=== PATIENT | female | born 1965 | race Caucasian/White ===

== ENCOUNTER 2022-02-21 22:33 | Emergency (ER) | payer SELFPAY ==
[2022-02-21 23:09] VITALS: BP 108/73; PULSE 120; RESP 20; TEMP 37.7; O2SAT 97; BMI 27.3
--- NOTE | 2022-02-21 23:32 | ED.FEVER ---
HPI - Fever General Date Seen: 02/21/22 Chief Complaint: Unspecified Complaint, Adult Stated Complaint: Chills, shortness of breathe/cough Time Seen by Provider: 02/21/22 22:39 Source: patient and family Mode of arrival: ambulatory Limitations: no limitations History of Present Illness HPI Narrative: Patient is a 56-year-old female presents here for evaluation of a fever, her daughter is influenza A positive, was treated with Tamiflu, she developed a fever tonight, she has not vomited but does feel slightly nauseous. She also some weakness and earlier tonight she said she could not breathe, that is why her daughter brought her in. Did not receive the flu shot, MD elicited complaint: fever, malaise and weakness Pertinent past history: other (Adrenal insufficiency) Context: sick contacts and other(s) with similar symptoms Exacerbating factors: exertion Relieving factors: ibuprofen Associated symptoms: chills, myalgias, nasal congestion, sore throat, cough and nausea Treatments prior to arrival fever: ibuprofen Related Data Home Medications Medication Instructions Recorded Confirmed Advil 02/21/22 hydrocortisone 20 mg PO DAILY 02/21/22 02/21/22 Previous Rx's Medication Instructions Recorded oseltamivir 75 mg capsule (Tamiflu) 75 mg PO BID 5 days #10 caps 02/22/22 Allergies Allergy/AdvReac Type Severity Reaction Status Date / Time No Known Drug Allergies Allergy Verified 02/21/22 23:15 Review of Systems Status of ROS Reports: 10 or more systems reviewed and unremarkable except as noted in History and below Exam Narrative Exam Narrative: I find her comfortable in room 4, she is in no apparent distress she speaks fluid Chinese, but her daughter interprets. Oriented x3, answers my questions appropriately, within the rounds my Chinese knowledge. Pupils equal round reactive to light her TMs are normal oropharynx normal neck is supple full range of motion with absence of meningismus, hydration status is good, chest is clear heart sounds are normal, no signs of respiratory distress, abdomen is soft there is no guarding no past splenomegaly moves all extremities independently and well. Const Vital Signs, click to edit/add: Vital Signs - 24 hr 02/21/22 23:09 Temperature 99.8 F H Pulse Rate [Right Pulse Oximeter] 120 H Respiratory Rate 20 Blood Pressure [Left Upper Arm] 108/73 Pulse Oximetry 97 Oxygen Delivery Method Room Air Documenting provider has reviewed patient's vital signs: yes Course Course Hospital Course: Influenza is positive as suspected, she has influenza A. Recommend Tylenol, ibuprofen along with Tamiflu given her adrenal insufficiency, she will increase her hydrocortisone to 60 mg a day for the next 3 days, and then call her environmental health technician for further advice for this. We went over signs and symptoms of worsening condition, such as vomiting, increasing pain, other issues she is to come back if these occur. Vital Signs Vital signs: Initial Vital Signs Temperature 99.8 F H 02/21/22 23:09 Temperature Source Temporal Artery Scan 02/21/22 23:09 Pulse Rate 120 H 02/21/22 23:09 Respiratory Rate 20 02/21/22 23:09 Blood Pressure 108/73 02/21/22 23:09 Blood Pressure Mean 84 02/21/22 23:09 Blood Pressure Position Sitting 02/21/22 23:09 Pulse Oximetry 97 02/21/22 23:09 Oxygen Delivery Method 02/21/22 23:09 Vital Signs Temperature 99.8 F H 02/21/22 23:09 Pulse Rate 120 H 02/21/22 23:09 Respiratory Rate 20 02/21/22 23:09 Blood Pressure 108/73 02/21/22 23:09 Pulse Oximetry 97 02/21/22 23:09 Oxygen Delivery Method 02/21/22 23:09 Temperature 99.8 F H 02/21/22 23:09 Pulse Rate 120 H 02/21/22 23:09 Respiratory Rate 20 02/21/22 23:09 Blood Pressure 108/73 02/21/22 23:09 Pulse Oximetry 97 02/21/22 23:09 Oxygen Delivery Method 02/21/22 23:09 MDM - Fever Lab Data Labs: Lab Results 02/21/22 Range/Units 23:04 SARS-CoV-2 (PCR) Negative SARS-CoV-2 (Negative) Influenza Type A (PCR) POSITIVE PCR FLU A A (Negative) Influenza Type B (PCR) Negative PCR FLU B (Negative) RSV (PCR) Negative PCR RSV (Negative) Discharge Plan Discharge Clinical Impression: Influenza A Patient Disposition: Home w/ Parent or Adult Condition: Stable Instructions: Influenza (DC) Additional Instructions: Home, rest, medications as directed, Tylenol Advil alternating, I would increase here hydrocortisone to 60 mg a day. Please call your environmental health technician on Wednesday to confirm that is the dosage that he wants you to take. Recommend Tamiflu as directed. Activity Level: No Restrictions Prescriptions: New oseltamivir [Tamiflu] 75 mg capsule 75 mg PO BID 5 Days Qty: 10 0RF No Action hydrocortisone 20 mg PO DAILY Advil Follow Up/Referrals: Provider,Not a Local [Primary Care Provider] - Stand Alone Forms: [employer] Info Instructions
[2022-02-21] MEDS: ACETAMINOPHEN 500 MG TABLET 1000 MG PO (23:41)
[2022-02-21 23:53] LABS: PCR FLU A POSITIVE PCR FLU A (Negative); PCR FLU B Negative PCR FLU B (Negative); PCR RSV Negative PCR RSV (Negative)
[2022-02-21 23:57] LABS: SARS PCR* Negative SARS-CoV-2 (Negative)
--- OUTSIDE RECORDS SUMMARY | 2022-02-22 00:03 | XMS_ITS | Continuity of Care Document ---
:04/03/1966 Author Organization [facility] Address [address] [place] [address]- Care Team Providers Name Role Phone Laurita Kothari Primary Care Physician Encounter [facility] [id number] Date(s): 07/08/21 - 07/08/21 [facility] [address] [place], [place] [address] Encounter Diagnosis Lower extremity weakness (Discharge Diagnosis) - 07/08/21 Head ache (Discharge Diagnosis) - 07/08/21 Pain of left upper extremity (Discharge Diagnosis) - 07/08/21 Attending Physician: Balbir Irby MD Admitting Physician: Balbir Irby MD Referring Physician: No referring, Doctor Reason for Visit LT SIDE HEAD PAIN Allergies, Adverse Reactions, Alerts No Known Allergies Medications acetaminophen (acetaminophen 325 mg oral tablet) [facility] Status: Ordered [address] [place], [place] [id number] Start Date: 07/08/21 Stop Date: 07/11/21 2 Tabs By Mouth Every 6 hours as needed for pain for 3 Days. Refills: 0. Ordering provider: Balbir Irby MD amLODIPine (amLODIPine 10 mg oral tablet) [facility] Status: Ordered [address], [place] [id number] Start Date: 05/07/21 1 Tabs By Mouth Daily. Refills: 1. Ordering provider: Sen Keenan MD atorvastatin (atorvastatin 40 mg oral tablet) [facility] Status: Ordered [address] [place], [place] [id number] Start Date: 05/07/21 1 Tabs By Mouth Daily. Refills: 0. Ordering provider: Sen Keenan MD insulin detemir (insulin detemir 100 units/mL subcutan eous solution) [facility] Status: Ordered [address] [place], [place] [id number] Start Date: 05/07/21 0.1 Milliliter Subcutaneous Daily. Refills: 0. Ordering provider: Sen Keenan MD levothyroxine (Synthroid 175 mcg (0.175 mg) oral table t) [facility] Status: Ordered [address] [place], [place] [id number] Start Date: 05/07/21 1 Tabs By Mouth Daily. Refills: 0. Ordering provider: Sen Keenan MD metFORMIN (metFORMIN 500 mg oral tablet) [facility] [address] [facility] [place] [id number] Start Date: 05/07/21 2 Tabs By Mouth 2 Times a Day With Meals. Refills: 0. Ordering provider: Sen Keenan MD Problem List Condition Effective Dates Status Health Status Informant Diabetes(Confirmed) Active Hypertension(Confirmed) Active Procedures Procedure Date Related Diagnosis Body Site Status Collection of venous blood by 07/08/21 Completed venipuncture Results Laboratory List Name Date Auto Diff 07/08/21 CBC with Diff 07/08/21 Comprehensive Metabolic Panel (CMP) 07/08/21 Lactic Acid Lvl 07/08/21 Troponin (TNIH) 07/08/21 07/08/21 Test Result Reference Range Specimen Source Laborator y WBC 6.64 x10e3/mcL (Normal is Blood [facility] 4.30-11.00 x10e3/mcL) RBC 3.58 x10e6/mcL (Normal is Blood [facility] Laborator [facility] 4.20-5.40 x10e6/mcL) Hgb 10.10 gm/dL (Normal is Blood [facility] 12.00-14.00 gm/dL) Hct 32.00 % (Normal is Blood [facility] 36.00-42.00 %) MCV 89.4 Femtoliters (Normal is Blood [facility] Laborat ory 80.0-100.0 Femtoliters) MCH 28.20 pg (Normal is Blood [facility] 26.00-33.00 pg) MCHC 31.60 gm/dL (Normal is Blood [facility] 31.00-36.00 gm/dL) RDW-CV 13.80 % (Normal is Blood [facility] 11.70-15.00 %) Plt 268 x10e3/mcL (Normal is Blood [facility] 150-375 x10e3/mcL) MPV 11.20 Femtoliters (Normal is Blood [facility] Labora tory 0.00-11.00 Femtoliters) Neut % Auto 63.5 % (Normal is Blood [facility] 40.0-70.0 %) Lymph % Auto 24.8 % (Normal is Blood [facility] 25.0-40.0 %) [place] % Auto 8.1 % (Normal is Blood [facility] 0.0-14.0 %) Eos % Auto 2.7 % (Normal is Blood [facility] 0.0-6.0 %) Baso % Auto 0.9 % (Normal is Blood [facility] 0.0-2.0 %) Neut # Auto 4.2 x10e3/mcL (Normal is Blood [facility] 2.0-7.0 x10e3/mcL) Lymph # Auto 1.6 x10e3/mcL (Normal is Blood [facility] 1.3-4.4 x10e3/mcL) [place] # Auto 0.5 x10e3/mcL (Normal is Blood [facility] 0.0-1.4 x10e3/mcL) Eos # Auto 0.2 x10e3/mcL (Normal is Blood [facility] 0.0-0.5 x10e3/mcL) Baso # Auto 0.1 x10e3/mcL (Normal is Blood [facility] 0.0-0.2 x10e3/mcL) Glucose Level 219 mg/dL (Normal is Blood [facility] 74-106 mg/dL) Sodium 139.0 mmol/L (Normal is Blood [facility] 136.0-145.0 mmol/L) Potassium 4.00 mmol/L (Normal is Blood [facility] 3.50-5.10 mmol/L) Chloride 103 mmol/L (Normal is Blood [facility] 98-107 mmol/L) CO2 30.00 mmol/L (Normal is Blood [facility] 21.00-32.00 mmol/L) Anion Gap 6 mmol/L (Normal is 3-11 Blood [facility] Laborat ory mmol/L) BUN 22.0 mg/dL (Normal is Blood [facility] 7.0-18.0 mg/dL) Creatinine 0.86 mg/dL (Normal is Blood [facility] 0.55-1.02 mg/dL) BUN/Creat Ratio 26 Ratio (Normal is 6-22 Blood [facility] Labo ratory Ratio) Calcium 9.00 mg/dL (Normal is Blood [facility] 8.50-10.10 mg/dL) Albumin. Level 2.5 gm/dL (Normal is Blood [facility] Laborator y 3.4-5.0 gm/dL) TP 7.70 gm/dL (Normal is Blood [facility] 6.40-8.20 gm/dL) A/G Ratio 0.5 Ratio (Normal is Blood [facility] 1.0-2.5 Ratio) T Bili 0.16 mg/dL (Normal is Blood [facility] 0.20-1.00 mg/dL) Alk Phos 708.0 units/L (Normal is Blood [facility] 46.0-116.0 units/L) AST 82.0 Intl_units/L (Normal is Blood [facility] Labora tory 15.0-37.0 Intl_units/L) ALT 77.0 units/L (Normal is Blood [facility] 12.0-78.0 units/L) Estimated 47.72 mL/min1 Creatinine Clearance eGFR Non- 76.05 (Normal is >=60) Blood [facility]CR [facility] [place] eGFR 88.14 (Normal is >=60) Blood [facility] Labora tory [facility] eGFR Pediatric Not Reported (Normal is >=75 Blood [facility] Labor atory mL/min/1.73m22 mL/min/1.73m2) Lactic Acid Lvl 1.00 mmol/L (Normal is Blood [facility] Laborato ry 0.40-2.00 mmol/L) Globulin 5.2 gm/dL (Normal is Blood [facility] 1.9-3.7 gm/dL) Calc Osmo 279 (Normal is Blood [facility] 285-295) Troponin TNIH 10.3 ng/L (Normal is Blood [facility] 0.0-51.4 ng/L) 1Result Comment: Calculated using method: Cockroft-Gault 2Result Comment: Not reported for adult patients ( > 18 years old ). Laboratory Information [facility] CLIA Number: [id number] [facility] [address] [facility] CLIA Number: [id number] [facility] [address] [place], [place] [address] Vital Signs 07/08/21 Temperature (Route Not Specified) 36 DegC*LOW* (Norm al is 36.5-37.3 DegC) Peripheral Pulse Rate 81 bpm (Normal is 60-100 bpm) Respiratory Rate 18 br/min (Normal is 12-20 br /min) Blood Pressure 154/79 mmHg (Normal is 90-135/60 -80 mmHg) Height 147.32 cm Weight 65.77 kg Social History Social History Type Response Sex Female Hospital Discharge Instructions Patient Ptxmtodvi51/12/2022 20:53:42Self-Care for HeadachesSelf-Care for Headaches Most headaches aren't serious and can be relieved with self-care. But some headaches may be a sign of another health problem like eye trouble or high blood pressure. To find the best treatment, learn what kind of headaches you get. For tension headaches, self-care will usually help. To treat migraines, ask your??healthcare provider??for advice. It's also possible to get both tension and migraine headaches. Self-care involves relieving the pain and avoiding headache triggers if you can. Ways to reduce pain and tension Try these steps: ???Apply a cold compress or ice pack to the pain site. ???Drink fluids. If nausea makes it hard to drink, try sucking on ice. ???Rest. Protect yourself from bright light and loud noises. ???Calm your emotions by imagining a peaceful scene. ???Massage tight neck, shoulder, and head muscles. ???To relax muscles, soak in a hot bath or use a hot shower. Use medicines Aspirin or other ajis-[id number] (OTC) pain medicines such as ibuprofen and acetaminophen can relieve headache. Remember: Never give aspirin to anyone 18 years old or younger because of the risk of getting Kin syndrome. Use pain medicines only when needed. Certain prescription and OTC medicines can lead to rebound headaches if they are taken too often. Check with your healthcare provider or pharmacist about your medicines. Track your headaches Keeping a headache diary can help you and your??healthcare provider??identify what's causing your headaches: ???Note when each headache happens. ???Identify your activities and the foods you've eaten??6 to 8??hours before the headache began. ???Look for any trends or triggers. ???Bring the information to your next medical appointment. Signs of tension headache Any of the following can be signs: ???Dull pain or feeling of pressure in a tight band around your head ???Pain in your neck or shoulders ???Headache without a definite beginning or end ???Headache after an activity such as driving or working on a computer Signs of migraine Any of the following can be signs: ???Throbbing pain on one or both sides of your head ???Nausea or vomiting ???Extreme sensitivity to light, sound, and smells ???Bright spots, flashes, or other visual changes ???Pain or nausea so severe that you can't continue your daily activities When to call your??healthcare provider?? Call your healthcare provider if any of these occur: ???A headache that lingers after a recent injury or bump to the head ???A headache that lasts for more than??3 days ???Frequent headaches,??especially in the morning Get medical care right away if you have: ???A headache along with slurred speech, changes in your vision, or numbness or weakness in your arms or legs ???Headaches with seizures ???A fever with a stiff neck or pain when you bend your head toward your chest ???A headache that you would call the worst headache you have ever had or a severe, persistent headache that gets worse or doesn't get better with treatment ?? [phone] [employer]. All rights reserved. This information is not intended as a substitute for professional medical care. Always follow your healthcare professional's instructions. Care Team PersonnelName: Laurita Kothari MD Address: [address] [facility] [address] [place] [address] [facility]
--- OUTSIDE RECORDS SUMMARY | 2022-02-22 00:03 | XMS_ITS | Continuity of Care Document ---
:04/03/1966 Author Organization [facility] Address [address] [place] [address]- Care Team Providers Name Role Phone Titi Laurita Mcdaniels Primary Care Physician Encounter [facility] [id number] Date(s): 06/02/21 - 06/02/21 [facility] [address] [place] [address]- [facility] Encounter Diagnosis Degenerative joint disease (Discharge Diagnosis) - 06/02/21 Bilateral shoulder pain (Discharge Diagnosis) - 06/02/21 Attending Physician: Shaun Pradhan MD Admitting Physician: Shaun Pradhan MD Referring Physician: No referring, Doctor Reason for Visit LEFT SHOULDER PAIN Allergies, Adverse Reactions, Alerts No Known Allergies Medications acetaminophen-codeine (Tylenol with Codeine #4 oral ta blet) [facility] Status: Ordered [address] [place], [place] [id number] Start Date: 06/02/21 Stop Date: 06/05/21 1 Tabs By Mouth Every 6 hours for 3 Days. Refills: 0. Ordering provider: Shaun Pradhan MD amLODIPine (amLODIPine 10 mg oral tablet) [facility] Status: Ordered [address] [place], [place] [id number] Start Date: 05/07/21 1 Tabs By Mouth Daily. Refills: 1. Ordering provider: Sen Keenan MD atorvastatin (atorvastatin 40 mg oral tablet) [facility] Status: Ordered [address] [place], [place] [id number] Start Date: 05/07/21 1 Tabs By Mouth Daily. Refills: 0. Ordering provider: Sen Keenan MD insulin detemir (insulin detemir 100 units/mL subcutan eous solution) [facility] Status: Ordered [address] [place] [id number] Start Date: 05/07/21 0.1 Milliliter Subcutaneous Daily. Refills: 0. Ordering provider: Sen Keenan MD levothyroxine (Synthroid 175 mcg (0.175 mg) oral table t) [facility] Status: Ordered [address] [place] [id number] Start Date: 05/07/21 1 Tabs By Mouth Daily. Refills: 0. Ordering provider: Sen Keenan MD metFORMIN (metFORMIN 500 mg oral tablet) [facility] Status: Ordered [address] [place], [place] [id number] Start Date: 05/07/21 2 Tabs By Mouth 2 Times a Day With Meals. Refills: 0. Ordering provider: Sen Keenan MD Problem List Condition Effective Dates Status Health Status Informant Diabetes(Confirmed) Active Hypertension(Confirmed) Active Vital Signs 06/02/21 Temperature (Route Not Specified) 36.8 DegC (Norm al is 36.5-37.3 DegC) Peripheral Pulse Rate 100 bpm (Normal is 60-100 bpm) Respiratory Rate 17 br/min (Normal is 12-20 br /min) Blood Pressure 166/90 mmHg (Normal is 90-135/60 -80 mmHg) Height 158 cm Weight 55 kg Social History Social History Type Response Sex Female Hospital Discharge Instructions Patient Zxlclxdlz04/07/2022 14:22:25Shoulder Pain, Uncertain CauseShoulder Pain with Uncertain Cause?? Shoulder pain can have many causes. Pain often comes from the structures that surround the shoulder joint. These are the joint capsule, ligaments, tendons, muscles, and bursa. Pain can also come from cartilage in the joint. Cartilage can become worn out or injured. It???s important to know what???s causing your pain so the healthcare provider can use the correct treatment. But sometimes it???s difficult to find the exact cause of shoulder pain. You may need to see a specialist (orthopedist). You mayalso need special tests such as a CT scan or MRI. The provider may need to use special tools to lookinside the joint (arthroscopy). Shoulder pain can be treated with a sling or a device that keeps your shoulder from moving. You can take an anti-inflammatory medicine such as ibuprofen to ease pain. You may need to do special shoulder exercises. Follow up with a specialist if the pain is severe or doesn???t go away after a few weeks. Home care Follow these tips when caring for yourself at home: ???If a sling was given to you, leave it in place for the time advised by your healthcare provider. If you aren???t sure how long to wear it, ask for advice. If the sling becomes loose, adjust it so that your forearm is level with the ground. Your shoulder should feel well supported. ???Put an ice pack on the injured area for 20 minutes every 1 to 2 hours the first day. You can makeyour own ice pack by putting ice cubes in a plastic bag. Wrap the bag in a thin towel. Continue withice packs 3 to 4 times a day for the next 2 days. Then use the pack as needed to ease pain and swelling. ???You may use acetaminophen or ibuprofen to control pain, unless another pain medicine was prescribed.??If you have chronic liver or kidney disease, talk with your healthcare provider before using these medicines. Also talk with your provider if you???ve ever had a stomach ulcer or digestive bleeding. ???Shoulder pain may seem worse at night, when there is less to distract you from the pain. If you sleep on your side, try to keep weight off your painful shoulder. Propping pillows behind you may stopyou from rolling over onto that shoulder during sleep.?Shoulder and elbow joints can become stiff if left in a sling for too long. You should start range of motion exercises about 7 to 10 days after the injury. Talk with your provider to find out what type of exercises to do and how soon to start. ???You can take the sling off to shower or bathe. Follow-up care Follow up with your healthcare provider if you don???t start to get better in the next 5 days. When to seek medical advice Call your healthcare provider right away??if any of these occur: ???Pain or swelling gets worse??or continues for more than a few days ???Your hand or fingers become cold, blue, numb, or tingly ???Large amount of bruising on your shoulder or upper arm ???Trouble moving your hand or fingers ???Weakness in your hand or fingers ???Your shoulder becomes stiff ???It feels like your shoulder is popping out ???You are less able to do your daily activities ?? 6430-9287 [employer]. All rights reserved. This information is not intended as a substitute for professional medical care. Always follow your healthcare professional's instructions. 06/02/2021 14:22:25OsteoarthritisOsteoarthritis Osteoarthritis happens??when the cartilage in a joint becomes damaged and worn. This may be from age, wear and tear, overuse of the joint, obesity, or other problems. Osteoarthritis??can affect any joint. But it's most common in??hands, knees, spine, hips, and feet. Symptoms include joint stiffness, and pain. It's also called degenerative joint disease. Home care ???When a joint is more sore than usual, rest it for a day or two. ???Heat can help relieve stiffness. Take a hot bath or apply a heating pad for up to 30 minutes at atime. If symptoms are worse in the morning, using heat just after awakening can help relax the muscle and soothe the joints.?Ice helps relieve pain. It's often used after activity. Use a cold pack wrapped in a thin cloth on the joint for 10 to 15 minutes at a time.?Alternating hot and cold can also help relieve pain. Try this for 20 minutes at a time, several times per day. ???Exercise helps prevent the muscles and ligaments around the joint from becoming weak.??It also helps maintain function in the joint.??Be as active as you can. Talk to your healthcare provider about what activity program is best for you. ???Excess weight puts a lot of extra strain on weight-bearing joints of the lower back, hips, knees,feet and ankles. If you are overweight, talk to your healthcare provider about a safe and effective weight loss program. ???Use anti-inflammatory medicines as prescribed for pain. This includes acetaminophen or NSAIDs such as ibuprofen or naproxen. Don't take NSAIDs if your healthcare provider has told you that you can'ttake NSAIDS because of other health problems If needed, topical or injected medicines may be recommended. Talk with your healthcare provider if these options are not enough to manage your pain. Follow the directions on all fhim-khf-wzzysnd medicines. ???Talk with your healthcare provider about devices that might help improve your function and reducepain. ???Talk with you healthcare provider about physical therapy to help strengthen your joints and the surrounding muscles. Follow-up care Follow up with your healthcare provider, or as advised. When to seek medical advice Call your healthcare provider right away if any of these occur: ???Redness or swelling of a painful joint ???Discharge or pus from a painful joint ???Fever of??100.4??F (38??C)??or higher, or as directed by your healthcare provider ???Worsening joint pain ???Decreased ability to move the joint or bear weight on the joint ?? 1716-5642 [employer]. All rights reserved. This information is not intended as a substitute for professional medical care. Always follow your healthcare professional's instructions. 06/02/2021 14:22:25Arthritis: ExerciseArthritis: Exercise Exercise is important to your overall health. It is especially important in people with arthritis. Regular exercise can: Look for exercise classes for arthritis in your community. ???Keep your??heart and blood vessels healthy ???Help with weight management, or weight loss ???Improve your mood ???Help prevent and manage health problems such as: oDiabetes oHigh blood pressure oHigh cholesterol oDepression In people with arthritis, it offers all of those benefits and it can: ???Lessen pain and stiffness ???Strengthen muscles that support your joints ???Help you to be able to do the things you enjoy Exercise and arthritis Exercise is an important part of any arthritis treatment plan. A complete program consists of the??following 3??types of exercises: ???Aerobic exercises??for cardiovascular health and overall fitness.?Strengthening exercises??to build up muscles to help prevent injury and keep joints stable. ???Fxwqi-vb-rpkgbp exercises??to keep muscles and joints flexible. Getting started Talk with your healthcare provider about what is safe for you. Make sure you: ???Learn how to do exercises correctly??and safely.??Consider talking with a physical therapist or process trainer used to working with people with arthritis. ???Start slowly and build. If you haven't been exercising, start slowly. Don't exercise too hard or too long. ???Create a routine.??Set aside specific times for exercise every day. ???Warm up carefully.??Take 5 to 10 minutes at the beginning and end of exercising to warm up and cool down. Just do the same exercises at a slower pace for??5 to 10 minutes. ???Work at a comfortable, smooth pace. Move your joints gently to prevent injury. ???Pay attention to your body.??Don't exercise a painful or swollen joint; switch to another activity. Follow the 2-hour pain rule: You did too much if your joint or muscle pain lasts??2 hours or more after exercising, or is worse the next day. This doesn't mean you should stop exercising. Just do less. Aerobic exercise Aerobic exercise improves overall health and helps control weight.??Choose those that don't add extra stress to your joints. For example, walking, swimming, or bicycling. Most people should exercise for at least 30 minutes, most days of the week. You don't have to exercise all at once. Try exercising for 10 minutes, 3 times a day, for example. Strengthening exercises Strengthening your muscles helps to protect your joints and prevent injuries. Try to do strengthening exercises 2 to 3 times a week: ???These exercises can be done with exercise or resistance bands (inexpensive exercise aids that addresistance), or with light weights. Some people use soup cans as weights. ???Isometric??exercises are done by tightening the muscles without moving the joint. This may be a good way to strengthen the muscles around a stiff joint. A physical therapist or process trainer can teach you how to do these exercises. Kbfqb-jk-qkirhb (ROM) exercises Lhjib-hp-dlnttn (ROM) exercises allow you to move each of your joints in every way they are intendedto move. You should do ROM exercises for each joint 2 to 3 times a day. This will help you maintain full use of all of your joints. Sample ROM exercises The following are just a sample of ROM exercises???one for your neck, shoulders, elbows, hips, knees, and ankles. To completely move each joint through its full range of motion, you will have to do a few exercises for each joint. A physical therapist or process trainer can teach you how to do full ROM exercises for each joint.?? Repeat each for these exercises 5 to 10 times. Make sure you move slowly: 1. Neck turns. Sit in a straight-backed chair. Look straight ahead. Slowly turn your head to the right, then return it to center. Repeat. Do the same thing, turning your head to the left. Repeat. 2. Shoulder raise.??Lie on your back or sit in a chair. Raise one arm over your head, keeping your elbow straight. Keep the arm close to your ear. Return it slowly to your side. Repeat with your other arm. 3. Elbow stretch.??Sit in a chair. If you are able, put both arms out to your sides to form a T. Slowly touch your shoulders with the tips of your fingers. Then return to the T-position. Repeat. 4. Hip stretch.??Lie on your back with your legs straight and about 6 inches apart. With your foot flexed, slide your leg out to the side, then slide it back to the starting position. Repeat with your other leg. 5. Knee bend. Sit in a chair with your legs bent at the knees in front of you. Straighten one leg asmuch as you can, then bring it back to the floor. Repeat this 5 to 10 times. Then do the same thing with the other leg.?? 6. Ankle stretch. Sit with your feet flat on the floor. Lift your toes off of the floor while your heels stay down. Repeat. Then lift your heels off the floor while your toes stay down. Repeat. Other exercise Many other exercise and activities benefit people with arthritis. It is most important to find exercise and activities that you enjoy. You might try: ???Yoga, including chair yoga, helps to keep your joints strong and flexible ???Torres Chi, an ancient type of exercise with slow, gentle movements ???Water exercise, including water walking For more information on exercise for arthritis go to the [employer] website: www.arthritis.org. ?? [employer]. All rights reserved. This information is not intended as a substitute for professional medical care. Always follow your healthcare professional's instructions. Care Team PersonnelName: Laurita Kothari MD Address: [address] [place] [address] [facility]
--- OUTSIDE RECORDS SUMMARY | 2022-02-22 00:03 | XMS_ITS | Continuity of Care Document ---
:04/03/1966 Author Organization [facility] Address [address] [place] [address]- Care Team Providers Name Role Phone Titi Laurita Mcdaniels Primary Care Physician Encounter [facility] [id number] Date(s): 11/25/21 - 11/29/21 [facility] [address] [phone] [place] [address] [facility] Discharge Disposition: Discharge Placement Attending Physician: Poli Kaminski MD Admitting Physician: Poli Kaminski MD Referring Physician: Poli Kaminski MD Reason for Visit CERVICAL MYELOPATHY Allergies, Adverse Reactions, Alerts No Known Allergies Assessment and Plan Extracted from: Title: Progress/SOAP Note Author: Lina Dixon MD Date: Diagnoses Hyponatremia ??(E87.1) 1. ??Diabetes mellitus with hyperglycemi a ??(E11.65) 2. ??Essential hypertension ??(I10) 3. ??Cervical myelopathy ??(G95.9) ?? Diabetes mellitus with hyperglycemia (E1 1.65):??On metformin, dapagliflozin Sliding scale insulin. Monitor glucose A C at bedtime ?? Essential hypertension (I10):??On lisino pril. Monitor glucose ?? Cervical myelopathy (G95.9):??s.p C5,6,7 cervical decompression on 11/25/2021. Patient has impaired gait and mobility. Primarily wheelchair bound. Ongoing PT OT. check B12 level ?? VTE:??SCDs at this time.??Patient is not cleared by surgery to receive pharmacological prophylaxis at this time. ?VTE Prophylaxis Assessment:?? VTE Prophylaxis Ordered ?? Discharge Planning:??rehab ? Medications alendronate (alendronate 70 mg oral tablet) Status: Ordered Start Date: 11/21/21 1 Tabs By Mouth. atorvastatin (atorvastatin 40 mg oral tablet) Status: Ordered Start Date: 11/21/21 1 Tabs By Mouth Daily. dapagliflozin (Farxiga 10 mg oral tablet) Status: Ordered Start Date: 11/21/21 1 Tabs By Mouth Daily. ergocalciferol (Vitamin D2 50,000 intl units (1.25 mg) oral capsule) Status: Ordered Start Date: 11/21/21 1 Capsules By Mouth Daily. levothyroxine (Synthroid 200 mcg (0.2 mg) oral tablet) Status: Ordered Start Date: 11/21/21 1 Tabs By Mouth Daily. lisinopril (lisinopril 10 mg oral tablet) Status: Ordered Start Date: 11/21/21 1 Tabs By Mouth Daily. metFORMIN (metFORMIN 500 mg oral tablet) Status: Ordered Start Date: 11/21/21 1 Tabs By Mouth 2 Times a Day. insulin aspart (insulin aspart [employer] [facility] Intermediate) Status: Completed Start Date: 11/29/21 Stop Date: 11/29/21 3-13 units Subcutaneous. Refills: 0. insulin aspart (insulin aspart [employer] jarod Intermediate) Status: Completed Start Date: 11/28/21 Stop Date: 11/28/21 3-13 units Subcutaneous. Refills: 0. insulin aspart (insulin aspart [employer] jarod Intermediate) Status: Completed Start Date: 11/28/21 Stop Date: 11/28/21 3-13 units Subcutaneous. Refills: 0. Problem List Condition Effective Dates Status Health Status Informant Diabetes(Confirmed) Active Hypertension(Confirmed) Active Hyperthyroidism(Confirmed) Active Procedures Procedure Date Related Diagnosis Body Site Status Collection of venous blood by 11/27/21 Completed venipuncture Collection of venous blood by 11/25/21 Completed venipuncture Fusion Spine Cervical Anterior 11/25/21 Completed (Laterality NA)1 Collection of venous blood by 11/21/21 Completed venipuncture Completed CHOLECYSTECTOMY Completed COCHOLEAR IMPLANTS Completed 1auto-populated from documented surgical case Results Laboratory List Name Date POC Glucose 11/29/21 POC Glucose 11/29/21 POC Glucose 11/29/21 Vitamin B12 Level 11/27/21 Hgb A1C 3 11/25/21 Auto Diff 11/21/21 Beta hCG QuaNT 11/21/21 CBC with Diff 11/21/21 Comprehensive Metabolic Panel 11/21/21 PT INR 11/21/21 PTT 11/21/21 UA Microscopic 11/21/21 UA with Microscopic if Ind 11/21/21 11/29/21 Test Result Reference Range Specimen Source Laborator y POC Glucose 251 mg/dL (Normal is 70-105 mg/dL) Blood [facility] POC Glucose 148 mg/dL (Normal is 70-105 mg/dL) Blood [facility] POC Glucose 108 mg/dL (Normal is 70-105 mg/dL) Blood [facility] MAR Glucose Result 251 11/28/21 Test Result Reference Range Specimen Source Laborator y MAR Glucose Result 123 MAR Glucose Result 296 11/27/21 Test Result Reference Range Specimen Source Laborator y Vitamin B12 Lvl 2345 pg/mL (Normal is 211-911 pg/mL) Blood [facility] 11/25/21 Test Result Reference Range Specimen Source Laborator y Hgb A1C 12.80 % (Normal is 3.80-5.70 %) [facility] Est Avg Glucose 321 mg/dL (Normal is 70-130 mg/dL) [facility] 11/21/21 Test Result Reference Range Specimen Source Laborator y WBC 6.50 x10e3/mcL (Normal is Blood [facility] 4.30-11.00 x10e3/mcL) RBC 4.01 x10e6/mcL (Normal is Blood [facility] 4.20-5.40 x10e6/mcL) Hgb 10.50 gm/dL (Normal is Blood [facility] 12.00-14.00 gm/dL) Hct 34.20 % (Normal is Blood [facility] 36.00-42.00 %) MCV 85.5 Femtoliters (Normal is Blood [facility] 80.0-100.0 Femtoliters) MCH 26.20 pg (Normal is [facility] 26.00-33.00 pg) MCHC 30.70 gm/dL (Normal is [facility] 31.00-36.00 gm/dL) RDW-CV 14.10 % (Normal is Blood [facility] 11.00-17.00 %) Plt 215 x10e3/mcL (Normal is [facility] 150-375 x10e3/mcL) MPV 10.60 Femtoliters (Normal is Blood [facility] 7.40-11.40 Femtoliters) NRBC % 0 % (Normal is 0-1 [facility] %) Neut % Auto 78.1 % (Normal is Blood [facility] 40.0-70.0 %) Lymph % Auto 12.2 % (Normal is Blood [facility] 25.0-40.0 %) [place] % Auto 7.3 % (Normal is Blood [facility] 0.0-14.0 %) Eos % Auto 1.4 % (Normal is Blood [facility] 0.0-6.0 %) Baso % Auto 1.0 % (Normal is Blood [facility] 0.0-5.0 %) Neut # Auto 5.0 x10e3/mcL (Normal is Blood [facility] 2.0-11.0 x10e3/mcL) Lymph # Auto 0.8 x10e3/mcL (Normal is Blood [facility] 0.0-5.0 x10e3/mcL) [place] # Auto 0.5 x10e3/mcL (Normal is [facility] 0.0-1.8 x10e3/mcL) Eos # Auto 0.1 x10e3/mcL (Normal is [facility] 0.0-0.7 x10e3/mcL) Baso # Auto 0.1 x10e3/mcL (Normal is [facility] 0.0-0.2 x10e3/mcL) PT 9.9 Seconds (Normal is Blood [facility] 10.1-12.8 Seconds) INR 0.89 (Normal is [facility] 0.91-1.20) PTT 26.20 Seconds (Normal is [facility] 21.90-31.00 Seconds) Glucose Level 579 mg/dL1 (Normal is [facility] 74-110 mg/dL) Sodium 133 mmol/L (Normal is [facility] 136-145 mmol/L) Potassium 4.2 mmol/L (Normal is [facility] 3.5-5.1 mmol/L) Chloride 98 mmol/L (Normal is [facility] 98-107 mmol/L) CO2 29.8 mmol/L (Normal is [facility] 20.0-31.0 mmol/L) Anion Gap 5 mmol/L (Normal is 3-11 [facility] mmol/L) BUN 17 mg/dL (Normal is 9-23 [facility] mg/dL) Creatinine 1.07 mg/dL (Normal is [facility] 0.60-1.30 mg/dL) BUN/Creat Ratio 15.89 Ratio (Normal is [facility] 6.00-22.00 Ratio) Calcium 8.5 mg/dL (Normal is [facility] 8.5-10.0 mg/dL) Albumin. Level 2.4 gm/dL (Normal is [facility] 3.4-5.0 gm/dL) TP 7.2 gm/dL (Normal is [facility] 6.4-8.2 gm/dL) A/G Ratio 0.5 Ratio (Normal is [facility] 1.0-2.5 Ratio) T Bili 0.57 mg/dL (Normal is [facility] 0.30-1.20 mg/dL) Alk Phos 702 Intl_units/L (Normal is [facility] 46-116 Intl_units/L) AST 238 Intl_units/L (Normal is 15-37 [facility] b Intl_units/L) ALT 152 units/L (Normal is 10-49 [facility] units/L) Estimated Creatinine 51.30 mL/min2 Clearance eGFR Cr 61 mL/min/1.73m23 Blood eGFR Pediatric Not Reported (Normal is >=75 Blood mL/min/1.73m24 mL/min/1.73m2) Globulin 4.8 gm/dL (Normal is [facility] 1.9-3.7 gm/dL) HCG QT 2.9 marcio intl Blood [facility] units/mL Ur Color Straw (Normal is U CleanCatch [facility] Yellow) Ur Clarity Clear (Normal is U [facility] Clear) Ur Spec Grav 1.024 (Normal is U [facility] 1.002-1.0350) Ur pH 6.0 (Normal is U [facility] 4.6-8.0) Ur Leuk Est 25 WBCs/uLTrace (Normal is U [facility] Negative.) Ur Nitrite Negative (Normal is U [facility] Negative) Ur Protein 100 mg/dL ++ mg/dL (Normal is U [facility] Negative mg/dL) UR Glucose >=500 mg/dL +++ (Normal is U [facility] mg/dL Negative mg/dL) Ur Ketones Negative mg/dL (Normal is U [facility] Negative mg/dL) Ur Urobilinogen NEG U [facility] Ur Bili Negative (Normal is U [facility] Negative) Ur Blood 0.03 mg/dLSmall (Normal is U [facility] Negative) Ur WBC 10-14 /HPF (Normal is 0-2 U [facility] /HPF) Ur RBC 1-2 /HPF (Normal is 0-2 U [facility] /HPF) Ur Bacteria None Seen /HPF (Normal is None U [facility] Seen /HPF) Ur Squam Epithelial Trace /HPF U [facility] Ur Mucous Trace /HPF U [facility] 1Result Comment: Calculated using method: Cockroft-Gault 2Result Comment: Result Called to and read back by SARAI GUALLPA RN on 11/21/2021 12:18:36 CDTby ARR. 3Result Comment: No previous creatinine in the last 72 hours; eGFR may not be reflective of the patient???s kidney function if creatinine is rapidly changing. 4Result Comment: Not reported for adult patients ( > 18 years old ). Laboratory Information [facility] CLIA Number: [id number] [address] Lab CLIA Number: [id number] [address] Lab CLIA Number: [id number] [address] Lab CLIA Number: [id number] [address] Lab CLIA Number: [id number] [address] Orders for Microbiology Reports Name Date Culture Anaerobic 11/25/21 Culture Bone 11/25/21 Microbiology Reports TEST:Anaerobic Culture COLLECTED DATE/TIME:11/25/21 9:40 AM FINAL REPORT:No Anaerobic Growth at 48 hours. TEST:Culture Bone COLLECTED DATE/TIME:11/25/21 9:40 AM FINAL REPORT:No growth at 72 hours. - See Culture Anaerobic for anaerobic work. Vital Signs 11/29/21 Temperature (Route Not Specified) 36.7 DegC (Norm al is 36.5-37.3 DegC) Peripheral Pulse Rate 95 bpm (Normal is 60-100 bpm) Respiratory Rate 16 br/min (Normal is 12-20 br /min) Blood Pressure 149/87 mmHg (Normal is 90-135/60 -80 mmHg) 11/21/21 Weight 56.699 kg 11/20/21 Height 162.56 cm Social History Social History Type Response Tobacco Denies Smoking Status Never smoker Sex Female Hospital Discharge Instructions Patient Ssqkyhhfg67/03/2022 16:05:35DIABETES, General Info (CUSTOM)Diabetes (General Information) Diabetes is a long-term health problem. It means your body does not make enough insulin. Or it may mean that your body cannot use the insulin it makes. Insulin is a hormone in your body. It lets blood sugar (glucose) reach the cells in your body. All of your cells need glucose for fuel. When you have diabetes, the glucose in your blood builds up because it cannot get into the cells. This buildup is called high blood sugar (hyperglycemia). Your blood sugar level depends on several things. It depends on what kind of food you eat and how much of it you eat. It also depends on how much exercise you get, and how much insulin you have in yourbody. Eating too much of the wrong kinds of food or not taking diabetes medicine on time can cause high blood sugar. Infections can cause high blood sugar even if you are taking medicines correctly. These things can also cause low blood sugar: ??? Missing meals ??? Not eating enough food ??? Taking too much diabetes medicine Diabetes can cause serious problems over time if you do not get treated. These problems include heart disease, stroke, kidney failure, and blindness. They also include nerve pain or loss of feeling in your legs and feet, and gangrene of the feet. By keeping your blood sugar under control you can prevent or delay these problems. Normal blood sugar levels are 80 to 100 before a meal and less than 180??in the 1 to 2 hours after ameal. Home care Follow these guidelines when caring for yourself at home: ??? Follow the diet your healthcare provider gives you. Take insulin or other diabetes medicine exactly as told to. ??? Watch your blood sugar as you are told to. Keep a log of your results. This will help your provider change your medicines to keep your blood sugar under control. ??? Try to reach your ideal weight. You may be able to cut back on or not have to take diabetes medicine if you eat the right foods and get exercise. ??? Do not smoke. Smoking worsens the effects of diabetes on your circulation. You are much more likely to have a heart attack if you have diabetes and you smoke. ??? Take good care of your feet. If you have lost feeling in your feet, you may not see an injury orinfection. Check your feet and between your toes at least once a week. ??? Wear a medical alert bracelet or necklace, or carry a card in your wallet that says you have diabetes. This will help healthcare providers give you the right care if you get very ill and cannot tell them that you have diabetes. Sick day plan If you get a cold, the flu, or a bacterial or viral infection, take these steps: ??? Look at your diabetes sick plan and call your healthcare provider as you were told to. You may need to call your provider right away if: ??? Your blood sugar is above 240 while taking your diabetes medicine ??? Your urine ketone levels are above normal or high ??? You have been vomiting more than 6 hours ??? You have trouble breathing or your breath zaragoza s a fruity smell ??? You have a high fever ??? You have a fever for several days and you are not getting better ??? You get light-headed and are sleepier than usual ??? Keep taking your diabetes pills (oral medicine) even if you have been vomiting and are feeling sick. Call your provider right away because you may need insulin to lower your blood sugar until you recover from your illness. ??? Keep taking your insulin even if you have been vomiting and are feeling sick. Call your providerright away to ask if you need to change your insulin dose. This will depend on your blood sugar results. ??? Check your blood sugar every 2 to 4 hours, or at least 4 times a day. ??? Check your ketones often. If you are vomiting and having diarrhea, watch them more often. ??? Do not skip meals. Try to eat small meals on a regular schedule. Do this even if you do not feellike eating. ??? Drink water or other liquids that do not have caffeine or calories. This will keep you from getting dehydrated. If you are nauseated or vomiting, takes small sips every 5 minutes. To prevent dehydration try to drink a cup (8 ounces) of fluids every hour while you are awake. General care Always bring a source of fast-acting sugar with you in case you have symptoms of low blood sugar (below 70). At the first sign of low blood sugar, eat or drink 15 to 20 grams of fast-acting sugar to raise your blood sugar. Examples are: ??? 3 to 4 glucose tablets. You can buy these at most [id number]. ??? 4 ounces (1/2 cup) of regular (not diet) soft??drinks ??? 4 ounces (1/2 cup) of any fruit juice ??? 8 ounces (1 cup) of milk ??? 5 to 6 pieces of hard candy ??? 1 tablespoon of honey Check your blood sugar 15 minutes after treating yourself. If it is still below 70, take 15 to 20 more grams of fast-acting sugar. Test again in 15 minutes. If it returns to normal (70 or above), eat asnack or meal to keep your blood sugar in a safe range. If it stays low, call your doctor or go to an emergency room. Follow-up care Follow-up with your healthcare provider, or as advised. For more information about diabetes, visit the [employer] website at www.diabetes.org or call 564-977-6241. When to seek medical advice Call your healthcare provider right away if you have any of these symptoms of high blood sugar: ??? Frequent urination ??? Dizziness ??? Drowsiness ??? Thirst ??? Headache ??? Nausea or vomiting ??? Abdominal pain ??? Eyesight changes ??? Fast breathing ??? Confusion or loss of consciousness Also call your provider right away if you have any of these signs of low blood sugar: ??? Fatigue ??? Headache ??? Shakes ??? Excess sweating ??? Hunger ??? Feeling anxious or restless ??? Eyesight changes ??? Drowsiness ??? Weakness ??? Confusion or loss of consciousness Call 911 Call for emergency help right away if any of these occur: ??? Chest pain or shortness of breath ??? Dizziness or fainting ??? Weakness of an arm or leg or one side of the face ??? Trouble speaking or seeing ?? [phone] [employer] [place] [address], [place] [address]. All rights reserved. This information is not intended as a substitute for professional medical care. Always follow your healthcare professional's instructions. 11/29/2021 16:05:32HYPERTENSION, Established (CUSTOM)High Blood Pressure --Established High Blood Pressure (Hypertension) is a chronic disease. The cause is unknown in most cases. It can usually be controlled with lifestyle changes and/or medicines. Symptoms of high blood pressure may include headache, dizziness, visual changes, chest pain and shortness of breath. Sometimes it causes no symptoms at all. However, even if there are no symptoms, untreated high blood pressure increases therisk of heart attack, also known as acute myocardial infarction, or AMI, and stroke. It is a serioushealth risk and should not be ignored. A normal blood pressure is 120/80 or less. The first (top) number is the systolic pressure. The second (bottom) number is the diastolic pressure. Hypertension exists when either the top number is 140 or higher, OR the bottom number is 90 or higher on repeated measurements. Home Care: All patients with high blood pressure should do the following to lower their pressure. If you are onmedicines, then these methods may reduce or eliminate your need for medicines in the future. Begin a weight loss program if you are overweight. Reduce your salt intake. ?? Avoid high salt foods (olives, pickles, smoked meats, salted potato chips, etc.). ?? Do not add salt to your food at the table. ?? Use only small amounts of salt when cooking. Begin an exercise program. Discuss with your doctor what type of exercise program would be best for you. It doesn't have to be difficult. Even brisk walking for 20 minutes three times a week is a good form of exercise. Avoid medicines which contain heart stimulants. This includes many cold and sinus decongestant pillsand sprays as well as diet pills. Check the warnings about hypertension on the label. Stimulants such as amphetamine or cocaine could be lethal for someone with hypertension. Never take these. Limit your caffeine intake or switch to caffeine-free products. Stop smoking. If you are a long-time smoker, this can be hard. Enroll in a stop- smoking program to improve your chance of success. Learning how to handle stress better is an important part of any program to lower blood pressure. Learn about relaxation methods such as meditation, yoga or biofeedback. If medicines were prescribed, take them exactly as directed. Missing doses may cause your blood pressure get out of control. Consider buying an automatic blood pressure machine (available at most pharmacies). Use this to monitor your blood pressure at home and report the results to your doctor. Follow Up: Regular visits to your own physician for blood pressure checks and medicine adjustment is an important part of your care. Make a follow-up appointment as directed by our staff. Get Prompt Medical Attention if any of the following occur: ?? Chest pain or shortness of breath ?? Severe headache ?? Throbbing or rushing sound in the ears ?? Nosebleed ?? Sudden severe abdominal pain ?? Extreme drowsiness, confusion or fainting ?? Dizziness or vertigo (dizziness with spinning sensation) ?? Weakness of an arm or leg or one side of the face ?? Difficulty with speech or vision ?? [phone], [place] [address]. All rights reserved. This information is not intended as a substitute for professional medical care. Always follow your healthcare professional's instructions. 11/29/2021 16:05:29Spinal Cord InjurySpinal Cord Injury The spinal cord is a long bundle of nerve fibers and nerve cells that extend from the base of the skull to below the waist. It is protected by the bones of your spine. The spinal cord nerves carry messages between the brain and the rest of the body. For that reason, injuries to the spinal cord are very serious. They may cause loss of feeling below the injured area (numbness) or loss of the ability tomove (paralysis). Emergency treatment may help prevent permanent damage or may reduce the severity of the damage. Warning Don't move a person with a spinal injury unless??you must do so??to save his or her life. Call 911 and wait for help. What causes spinal cord injuries? Car accidents, falls, sports injuries, and gunshot wounds cause most spinal cord damage. Electrical shock can also damage the spinal cord. Spinal cord injuries can happen??to anyone, but men in their 30s and 40s are most often affected. When to go to the emergency room (ER) A spinal cord injury is an extreme medical emergency. For anyone with a possible injury to the back or neck, call 911 or emergency services right away. Don't try to move the person. Doing so can cause further injury. When the paramedics arrive The emergency technicians will place the injured person on a hard board and fit a hard neck brace onhis or her neck. They will ask basic questions, take a history, and do a physical exam. They might need to put an IV (intravenous catheter) in his or her arm or hand to give medicines or fluids. It is important to provide a current list of the medicines the injured person is taking. What to expect in the ER The??healthcare providers??and nurses caring for your loved one will act quickly. You can help by answering questions about the injury. Meanwhile, your loved one will be examined and his or her breathing, heart rate, and blood pressure will be checked. Oxygen may be given through a facemask. An endotra cheal tube may be placed in the throat to aid breathing. To help determine the extent of the injury,one or more tests may be done: ???Spinal X-rays can help reveal fracture or damage to the bones of the spine. ???CT scans are detailed cross sectional X-rays showing location and extent of the damage. ???MRI uses strong magnets and radio waves to provide clear computer images of the spine that revealherniated disks and other problems. ???Ultrasound or direct exam can find bladder distention. This is caused by urine retention because of an injured spinal cord. If the healthcare provider finds this condition, he or she will insert??a urinary catheter to empty the bladder. ?? [id number] [employer]. All rights reserved. This information is not intended as a substitute for professional medical care. Always follow your healthcare professional's instructions. 11/28/2021 20:26:48Therapeutic Exercises: Abduction/Adduction, Heel Slides, Gluteal Sets ([id number]) Exercises for the Legs The following exercises do more than build strength. You???ll also use them after surgery to help speed your recovery. Ask your physical therapist (PT) or surgeon if you should exercise one or both legs. You may also be given special instructions. And unless you???re told otherwise, try to do each exercise at least??5 to 10??times,??2??times a day. Abduction/adduction ??? Lie in bed with your feet slightly apart. Keeping your knee and foot pointing toward the ceiling, slowly slide your leg out to the side. ??? Slide your leg back to its original position without crossing the midline of your body. Heel slides ??? Lie down or sit with your legs stretched out in front of you. ??? Slide your heel toward your buttocks while keeping it on the bed. Placing a plastic bag or cookie sheet under the heel can help it slide more easily. ??? Move it as far as you comfortably can. Hold for 5 to 10 seconds, then slide your heel back. Gluteal sets ??? Squeeze your buttocks together tightly. ??? Your hips will rise slightly off the bed. Hold for 5 to 10 seconds, then release. ?? [phone] [employer] [place] [address]. All rights reserved. This information is not intended as a substitute for professional medical care. Always follow your healthcare professional's instructions. 11/28/2021 20:26:48Therapeutic Exercises 2: Ankle Pumps, Quad Sets, Leg Raises ([id number])Therapeutic Exercises: Ankle Pumps, Quad Sets, Leg Raises The following exercises build strength. You???ll also use them after surgery to help speed your recovery. Ask your physical therapist or surgeon if you should exercise one or both legs. You may also begiven special instructions. And unless you???re told otherwise, try to do each exercise at least??5 t o10??times,??2??times a day. Ankle pumps After surgery, ankle pumps will help prevent circulation problems, such as blood clots. Practice ankle pumps by pointing and flexing your feet. Quadriceps sets ??? Lie in bed with your legs straight. Tighten the muscle at the front of the thigh as you press the back of your knee down toward the bed. ??? Hold for 5 to 10 seconds. Then relax the leg. Straight leg raises ??? Lie in bed. Bend one leg. Keep your other leg straight on the bed. ??? Tighten your thigh muscle and lift your straight leg as high as you can, but not higher than??12??inches. Hold for 5 to 10 seconds. Slowly lower the leg. ?? [id number] [email or web address]. [address] [place] [address]. All rights reserved. This information is not intended as a substitute for professional medical care. Always follow your healthcare professional's instructions. 11/20/2021 20:45:53During Cervical Disk SurgeryDuring Cervical Disk Surgery During surgery, your surgeon may remove all or part of the disk (diskectomy). To reach the cervical spine, he or she may make an incision in the front (anterior) or the back (posterior) of your neck. With the anterior approach, the neck may be made more stable with a fusion (joining) of the vertebrae.With the posterior approach, bone may be removed to enable your surgeon to reach the disk. A metal plate may be used to keep the vertebrae stable. Adding stability: fusion After removing a disk from the front, your surgeon may fuse the vertebrae above and below it. This limits movement, helping to relieve pressure and pain. First, the surgeon enlarges the space between the vertebrae. The surgeon then ???plugs?? the space with a plastic or metal cage filled with bone chips or stem cells or??a cylinder- or wedge-shaped bone graft. Metal plates may be added. As you heal,the graft and vertebrae grow together (fuse). After fusion, your ability to bend your neck may be slightly restricted. Through the back: posterior approach Your surgeon will make an incision (about 2 to 4 inches long) in the middle or next to the middle ofthe back of your neck. Then he or she may remove bone to reach the problem area. The surgeon then removes the damaged portion of the disk. Area where lamina may be removed. Area where foramina may be enlarged. Removing bone To reach the disk from the back, your surgeon may enlarge the foramina or remove a portion of the lamina. To help relieve pressure on the nerves or spinal cord, bone spurs may also be removed. The location and amount of bone removed depend on the type of problem you have. A bone graft is inserted to plug the opening. The disk is removed from between the vertebrae. Through the front: anterior approach Your surgeon will make a horizontal or vertical incision (about 1 to 3 inches long) on either side of your neck. To reach the disk, soft tissue is moved aside. All or part of the disk that is irritating the nerve is then removed. Your surgeon may remove bone spurs. The vertebrae may then be prepared for a fusion. ?? 3925-0083 [employer]. All rights reserved. This information is not intended as a substitute for professional medical care. Always follow your healthcare professional's instructions. 11/20/2021 20:45:53Spinal FusionSpinal Fusion During spinal fusion, your surgeon locks together, or fuses, specific bones in your spine that are causing pain. This limits the movement of these bones, which may help relieve your pain. Even so, you may feel more flexible after a fusion because you can move with less pain. Types of spinal fusion surgery Which section of the spine is fused depends on where your pain is. Sections of the spine that may befused include: ???The neck (called cervical fusion) ???The midback (called??thoracic fusion)?The lower back (called lumbar fusion) Fusion can be done from the front (anterior), side (lateral),??or back (posterior) of the body. Yoursurgeon will suggest which method is best for you. Bone grafts used in the surgery may be from your bone, cadaver bone, or artificial materials. Your surgeon will discuss these options with you. Current research is inconclusive regarding the benefits of surgery over intensive rehabilitation programs. Your surgeon will discuss your specific case and options. Before your surgery You will most likely arrive at the hospital on the morning of the surgery. Be sure to follow all of your healthcare provider???s instructions on preparing for surgery. ???Follow any directions you are given for not eating or drinking before surgery. ???If you take a daily medicine, ask if you should still take it the morning of surgery. ???If you are taking any blood-thinning medicines, including aspirin, make sure to discuss them withyour??healthcare provider??at least a week in advance. ???At the hospital, your temperature, pulse, breathing, and blood pressure will be checked. An IV (Intravenous) line??will be started to provide fluids and??medicines needed during surgery. Anesthesia At the start of your surgery, you???ll be given general anesthesia. This??medicine will put you intoa deep state like sleep through the surgery. An anesthesiologist is in charge of the anesthesia. He or she??will meet with you before the surgery starts to talk to you and answer your questions. After surgery After the surgery, you???ll go to the postanesthesia care unit (PACU). You???ll stay there until youare fully awake, usually a few hours. Then you???ll go to your room. With cervical fusion, you may go home the next day. With lumbar fusion, you??may stay in the hospital for 2 to 7 days. During that period, nurses and physical therapists will help you get out of bed and walk. If you have drains coming out of your wounds(s), they are usually removed before you leave the hospital. When to call your healthcare provider Seek immediate medical attention??if you have any of these symptoms during your recovery: ???Increased pain, redness, or drainage from the incision ???New onset numbness, tingling, weakness, loss of bowel or bladder control?Fever over 100.4??F (38??C), or as advised ???Signs of a blood clot, which can include swelling, redness,??and pain in the calf ???Chest pain or shortness of breath ?? [id number] [email or web address]. All rights reserved. This information is not intended as a substitute for professional medical care. Always follow your healthcare professional's instructions. 11/20/2021 20:45:53Cervical Disk Surgery, Discharge InstructionsDischarge Instructions for Cervical Disk Surgery You had cervical disk surgery. This procedure??can relieve neck and arm pain, numbness, and weakness. There are several types of cervical disk surgery. You and your healthcare provider??decided on the type that was best for you. Here are tips to help speed your recovery. Activity ???Arrange your household to keep the items you need within reach. ???Remove electrical cords, throw rugs,??and anything else that may cause you to fall. ???Follow your healthcare provider's instructions for wearing a??cervical collar or brace. The neck collar or brace supports and correctly positions your neck after surgery. Follow instructions for itscare and use, including how long you must wear it. ???Don???t drive until your??healthcare provider??says it???s OK. This will most likely be when you can move your neck from side to side freely and without pain. Never drive while you are on opioid pain medicine. ???Walk as much as possible. You may also go up and down stairs. Walking outside or walking on a treadmill at a slow speed with no incline is OK. ???Don???t lift anything heavier than??5??pounds (2.27 kg). ???Ask your??healthcare provider??when you??can go back to work. Other home care ???Take pain medicine exactly as directed. Don't take nonsteroidal anti- inflammatory drugs (NSAIDs),such as aspirin, ibuprofen, and naproxen, for 6 months. These can block bone fusion.?Wait??5 to 7??days??after your surgery to start showering. Then shower as needed. You may be instructed to use a neck collar while you shower. If so, carefully remove it or cover it with plastic wrap when you shower. Keep your neck correctly positioned as you gently pat dry your skin, the incision,and the neck collar. Then put the neck collar back on. Don???t rub the incision. Don't put creams orlotions on??it. ???Don???t soak in bathtubs, hot tubs, or swimming pools until told by your healthcare provider. ???Your incision may have been closed using sutures, bonny, or strips of tape. If you have suturesor bonny, they may need to be removed??2 to 3??weeks after surgery. You can allow strips of tape to fall off on their own. ???If you smoke, get help to quit. Nicotine from cigarettes, chewing tobacco, or patches slows healing of bone and you may need more surgery. Join a stop-smoking program to improve your chances of success. Follow-up Make a follow-up visit, or as advised. When to call 911 or your healthcare provider Call 911 right away if you have any of these: ???Chest pain ???Shortness of breath ???Trouble controlling your bowels or bladder ???Painful calf that is warm to the touch and tender with pressure Call your??healthcare provider right away if you have any of these: ???Drainage, redness, or warmth at the incision ???Trouble swallowing, especially liquids ???Fever of??100.4??F??(38??C) or higher, or as directed by your healthcare provider ???Shaking chills ???Weakness, numbness, or tingling in your arms or legs ???Swelling of the foot, ankle, or calf that is not relieved by elevating your feet ???Increased pain ?? [id number] [employer]. All rights reserved. This information is not intended as a substitute for professional medical care. Always follow your healthcare professional's instructions. 11/20/2021 20:45:53Preventing Surgical Site InfectionsPreventing Surgical Site Infections Hand washing reduces the risk of infection. One risk of having surgery is an infection at the surgical site. The surgical site is any cut the surgeon makes in the skin to do the operation. Surgical site infections can range from minor skin infections to severe or even fatal ones involving tissue under the skin or organs. This sheet tells you more about surgical site infections, what hospitals are doing to prevent them, and how they are treatedif they do occur. It also tells you what you can do to prevent these infections. What causes surgical site infections? Germs are everywhere. They???re on your skin, in the air, and on things you touch. Many germs are good. Some are harmful. Surgical site infections occur when harmful germs enter your body through the incision in your skin. Some infections are caused by germs that are in the air or on objects. But mostare caused by germs found on and in your own body. Who is at risk for surgical site infections? Anyone can have a surgical site infection. Your risk is greater if you: ???Are an older adult ???Have a weak immune system or other health conditions or illnesses such as diabetes ???Take certain medicines such as steroids ???Are a smoker ???Have certain types of operations, such as abdominal surgery ???Have poor nutrition ???Are very overweight ???Have an operation that lasts longer than 2 hours What are the symptoms of a surgical site infection?The infection usually starts with increased skin redness, pain, and swelling around the incision.Later you may notice a cloudy or greenish-yellow discharge from the incision and it may develop a foul odor. The incision may separate or open up. You are also likely to have a fever and may feel very ill. ???Symptoms can appear any time from hours to weeks after surgery. Implants such as an artificial knee or hip can become infected at any time after the operation. How are surgical site infections treated?Surgical site infections are treated with antibiotics. The type of medicine you get will depend on the germ thought to be causing the infection. Most serious wound infections need local wound care, and in some cases, further surgery. ???An infected skin wound may be reopened and cleaned. Sometimes, deep wounds need to be packed withgauze that is changed often until the wound starts to heal from the inside out. Your healthcare provider will figure out the best care needed to treat your surgical site infection. ???If an infection occurs where an implant is placed, the implant may be removed. ???If you have an infection deeper in your body, you may need another operation to treat it. What hospitals do to prevent surgical site infections Many hospitals take these steps to help prevent surgical site infections: ???Handwashing.??Before the operation, your surgeon and all operating room staff scrub their hands and arms with an antiseptic soap. ???Clean??skin.??The site where your incision is made is carefully cleaned with an antiseptic solution. ???Sterile clothing and drapes.??Members of your surgical team wear medical uniforms (scrub suits), long-sleeved surgical gowns, masks, caps, shoe covers, and sterile gloves. Your body is fully coveredwith a large sterile sheet (sterile drape) except for the spot where the incision is made. ???Clean air.??Operating rooms have special air filters and positive pressure airflow to prevent unfiltered air from entering the room. ???Careful use of antibiotics.??Antibiotics are given no more than 60 minutes before the incision ismade and generally stopped??within 24 hours??after surgery, depending on the type of surgery. This helps kill germs but prevents problems that can occur when antibiotics are taken longer. ???Controlled blood sugar levels.??Your blood sugar level may rise because of the stress of the surgery. Your blood sugar level is??watched closely to make sure it stays within a normal range. High blood sugar delays wound healing and increases the chances for infection. ???Controlled body temperature. A lirrz-[id number] temperature during or after surgery prevents oxygen from reaching the wound and makes it harder for your body to fight infection. Hospitals may warm IV fluids, increase the temperature in the operating room, and provide warm-air blankets. ???Proper hair removal. Any hair that must be removed is clipped right before the incision, not shaved with a razor. This prevents tiny nicks and cuts through which germs can enter. ???Wound care.??After surgery, a closed wound is covered with a sterile dressing for a day or two. Open wounds are packed with sterile gauze and covered with a sterile dressing. What you can do to prevent surgical site infections ???Ask questions. Learn what your hospital is doing to prevent infection. ???If your doctor tells you to, shower or bathe with plain soap the night before and the day of youroperation. Follow the instructions you are given. You may be asked to use a special??cleanser that you don???t rinse off. ???If you smoke, stop for the longest duration possible before and after the operation. Ask your doctor about ways to quit. ???Take antibiotics only when your healthcare provider tells you to. Using antibiotics when they???re not needed can create germs that are harder to kill. Also, finish the entire prescription of your antibiotics, even if you feel better. ???Be sure healthcare workers clean their hands with plain soap and water or with an alcohol-based hand pillowcase cleaner before and after caring for you. Don???t be afraid to remind them. ???After surgery, eat healthy foods. Care for your incision as directed by your doctor or nurse. When to call your healthcare provider Call your healthcare provider if you have any of the following: ???Increased soreness, pain, or tenderness at the surgical site ???A red streak, increased redness, or puffiness near the incision ???Yellowish, cloudy,??or bad-smelling discharge from the incision ???Stitches that dissolve before the wound heals ???Fever of 100.4??F (38??C) or higher, or as directed by your healthcare provider ???A tired feeling that doesn???t go away ?? [id number] [employer]. All rights reserved. This information is not intended as a substitute for professional medical care. Always follow your healthcare professional's instructions. Implantable Device List Procedure Provider Procedure Date Device Type Site Fusion Spine Cervical Anterior Unknown 11/25/21 Unknown Neck Device Serial Lot or Manufacturing Expiration Distinct MRI Implan table Identifier Number Batch Date Date Identification Safety Status Number Code Unknown N/A N/A Unknown Unknown Unknown Unknown Active Unknown N/A N/A Unknown Unknown Unknown Unknown Active Unknown N/A N/A Unknown Unknown Unknown Unknown Active Care Team PersonnelName: Titi Mcdaniels MD, Laurita Saucedo Address: [address] [place], [place] [id number] [place] [address] [place]
--- OUTSIDE RECORDS SUMMARY | 2022-02-22 00:03 | XMS_ITS | Continuity of Care Document ---
:04/03/1966 Author Organization [facility] Address [address] [place] [address]- Care Team Providers Name Role Phone Laurita Kothari Primary Care Physician Encounter [facility] [id number] Date(s): 04/24/21 - 05/07/21 [facility] [address] [phone] [place] [address] [facility] Encounter Diagnosis ALLY (acute kidney injury) (Discharge Diagnosis) - 04/24/21 Left renal mass (Discharge Diagnosis) - 04/24/21 Leukocytosis (Discharge Diagnosis) - 04/24/21 Hyperkalemia (Discharge Diagnosis) - 04/24/21 Hyperglycemia due to type 2 diabetes mellitus (Discharge Diagnosis) - 04/24/21 Discharge Disposition: Routine to Home Attending Physician: Nikky MAGALLANES, [place] Admitting Physician: [place] Sher MD Referring Physician: No referring, Doctor Reason for Visit ALLY,SEPSIS,UTI;HYERGLYCEMIA,HY Allergies, Adverse Reactions, Alerts No Known Allergies Assessment and Plan Extracted from: Title: Progress/SOAP Note Author: Diego Quevedo MD, Sen bhat Date: 05/06/21 ??Diagnoses ALLY (acute kidney injury) ??(N17.9) Left renal mass ??(N28.89) Leukocytosis ??(D72.829) Hyperkalemia ??(E87.5) UTI (urinary tract infection) ??(N39.0) Back pain ??(M54.9) Bacteremia ??(R78.81) Hyponatremia ??(E87.1) Hyperglycemia due to type 2 diabetes mathieu litus ??(E11.65) SepsisNOS ??(A41.9) ?Assessment:??UTI Sepsis Hypokalemia resolved Back pain Uncontrolled type 2 diabetes mellitus? A1c 14 Hypothyroidism Dyslipidemia Systemic hypertension ? ADA diet Zosyn??4.5 g??IV 3 times daily Levothyroxine??175 mcg??daily Atorvastatin 40 mg daily Amlodipine??10 mg??p.o. daily Levemir 10 units subcu daily Metformin at 1000 mg??p.o. twice daily Rapid insulin sliding scale per protocol Zofran 4 mg IV twice daily as needed Tylenol 650 mg every 6 hours as needed Hydralazine 10 mg IV every 4 hours if sy stolic blood pressure is more than 160 as needed Ativan 0.5 mg IV twice daily as needed Colace 100 mg p.o. twice daily as needed d ?? DVT prophylaxis: Intermittent pneumatic compression.??Heparin 5000 units subcu twice daily GI prophylaxis: Pantoprazole 40 mg p.o. daily ?? Prognostic: Fair Condition: Critical Disposition: Remain on telemetry.?L ikely discharge tomorrow Further assessment depending on clinical course ? Discharge Planning:?Discharge Planning:?Discharge To, [facility] ed:??Home with family care ?Order Date/Time ??Order Action ??Order Name ??Order Detail ??05/06/2021 10:16 ??Order ??CMP ??Blood, Nurse collect, AM Draw collect, 05/07/21 4:00:00 INDOOR LANDSCAPE ARCHITECT, Daily, for 3 Times, Stop date 05/10/21 3:59:00 IN[employer]OR [employer]SCAPE ARCHITECT ??05/06/2021 10:16 ??Order ??CBC NoDiff ??Blood, Lab Collect, AM Draw collect, 0 05/07/21 4:00:00 INDOOR LANDSCAPE ARCHITECT, Daily, for 3 Times, Stop date 05/10/21 3:59:00 INDOOR LANDSCAPE ARCHITECT ??05/06/2021 10:15 ??Order ??metFORMIN 500 mg Tab ??1,000 mg, 2 Tabs, Oral, BID With Meals ??05/06/2021 10:14 ??Order ??insulin detemir Levemir 1 unit/0.01 mL ??10 units, 0.1 mL, SubCutaneous, Daily ? Future AppointmentsDiagnostic Tests PendingComprehensive Metabolic Panel 05/07/21 CBC no Diff 05/07/21D Dimer 04/25/21 Future Scheduled TestsRadiologyBD DXA Study 06/02/21 Medications amLODIPine (amLODIPine 10 mg oral tablet) [facility] Status: Ordered [address] [place], [place] [id number] Start Date: 05/07/21 1 Tabs By Mouth Daily. Refills: 1. Ordering provider: Sen Keenan MD atorvastatin (atorvastatin 40 mg oral tablet) [facility] Status: Ordered [address] [place], [place] [id number] Start Date: 05/07/21 1 Tabs By Mouth Daily. Refills: 0. Ordering provider: Sen Keenan MD cefdinir (Omnicef 300 mg oral capsule) [facility] Status: Ordered [address] [place], [place] [id number] Start Date: 05/07/21 Stop Date: 05/14/21 1 Capsules By Mouth Every 12 hours for 7 Days. Refills: 0. Ordering provider: Sen Keenan MD insulin detemir (insulin detemir 100 units/mL subcutan eous solution) [facility] Status: Ordered [address] [place], [place] [id number] Start Date: 05/07/21 0.1 Milliliter Subcutaneous Daily. Refills: 0. Ordering provider: Sen Keenan MD levothyroxine (Synthroid 175 mcg (0.175 mg) oral table t) [facility] Status: Ordered [address] [place], [place] [id number] Start Date: 05/07/21 1 Tabs By Mouth Daily. Refills: 0. Ordering provider: Sen Keenan MD metFORMIN (metFORMIN 500 mg oral tablet) [facility] Status: Ordered [address] [place], [place] [id number] Start Date: 05/07/21 2 Tabs By Mouth 2 Times a Day With Meals. Refills: 0. Ordering provider: Sen Keenan MD insulin regular (insulin regular Correctional scale Hi gh) Status: Completed Start Date: 05/07/21 Stop Date: 05/07/21 3-21 UNITS Subcutaneous. Refills: 0. insulin regular (insulin regular Correctional scale Hi gh) Status: Completed Start Date: 05/07/21 Stop Date: 05/07/21 3-21 UNITS Subcutaneous. Refills: 0. insulin regular (insulin regular Correctional scale Hi gh) Status: Completed Start Date: 05/07/21 Stop Date: 05/07/21 3-21 UNITS Subcutaneous. Refills: 0. Problem List Condition Effective Dates Status Health Status Informant Diabetes(Confirmed) Active Hypertension(Confirmed) Active Procedures Procedure Date Related Diagnosis Body Site Status Collection of venous blood by 05/07/21 Completed venipuncture Collection of venous blood by 05/06/21 Completed venipuncture Collection of venous blood by 05/03/21 Completed venipuncture Collection of venous blood by 05/02/21 Completed venipuncture Collection of venous blood by 04/30/21 Completed venipuncture Collection of venous blood by 04/29/21 Completed venipuncture Collection of venous blood by 04/28/21 Completed venipuncture Collection of venous blood by 04/26/21 Completed venipuncture Collection of venous blood by 04/25/21 Completed venipuncture Collection of venous blood by 04/24/21 Completed venipuncture Results Laboratory List Name Date POC Glucose 05/07/21 POC Glucose 05/07/21 POC Glucose 05/07/21 CBC no Diff 05/07/21 Comprehensive Metabolic Panel (CMP) 05/07/21 Auto Diff 05/06/21 Basic Metabolic Panel (BMP) 05/06/21 CBC with Diff 05/06/21 Magnesium Level 05/06/21 Troponin +3hr 05/03/21 Basic Metabolic Panel (BMP) 05/03/21 Magnesium Level 05/03/21 Phosphorus Level 05/03/21 Troponin (TNIH) (Troponin MED (STAT, +3hr, +6hr)) Auto Diff 05/02/21 CBC with Diff 05/02/21 Comprehensive Metabolic Panel (CMP) 05/02/21 Magnesium Level 05/02/21 Comprehensive Metabolic Panel (CMP) 04/30/21 D Dimer (D Dimer (FED)) 04/25/21 Hgb A1C 3 04/25/21 Troponin +3hr 04/24/21 UA Microscopic 04/24/21 UA Microscopic if Ind and Culture if Ind 04/24/21 Basic Metabolic Panel (BMP) 04/24/21 Lipid Panel with Direct LDL 2 04/24/21 Procalcitonin 04/24/21 Lactic Acid Lvl 04/24/21 C Reactive Protein (CRP) 04/24/21 T4 Free (Free T4) 04/24/21 B Type Natriuretic Peptide 04/24/21 Comprehensive Metabolic Panel 04/24/21 Lipase Level 04/24/21 Manual Differential 04/24/21 PT INR 04/24/21 PTT 04/24/21 TSH 04/24/21 05/07/21 Test Result Reference Range Specimen Source Laborator y WBC 5.90 x10e3/mcL (Normal is Blood [facility] 4.30-11.00 x10e3/mcL) RBC 3.21 x10e6/mcL (Normal is Blood [facility] 4.20-5.40 x10e6/mcL) Hgb 9.10 gm/dL (Normal is Blood [facility] 12.00-14.00 gm/dL) Hct 27.70 % (Normal is Blood [facility] 36.00-42.00 %) MCV 86.3 Femtoliters (Normal is Blood [facility] 80.0-100.0 Femtoliters) MCH 28.40 pg (Normal is Blood [facility] 26.00-33.00 pg) MCHC 32.90 gm/dL (Normal is Blood [facility] 31.00-36.00 gm/dL) RDW-CV 14.60 % (Normal is Blood [facility] 11.00-17.00 %) Plt 310 x10e3/mcL (Normal is Blood [facility] 150-375 x10e3/mcL) MPV 8.20 Femtoliters (Normal is Blood [facility] 7.40-11.40 Femtoliters) NRBC % 0 % (Normal is 0-1 %) Blood [facility] Glucose Level 196 mg/dL1 (Normal is 74-110 Blood [facility] mg/dL) POC Glucose 275 mg/dL (Normal is 70-105 Blood [facility] mg/dL) POC Glucose 308 mg/dL (Normal is 70-105 Blood [facility] mg/dL) POC Glucose 258 mg/dL (Normal is 70-105 Blood [facility] mg/dL) Sodium 139 mmol/L2 (Normal is Blood [facility] 136-145 mmol/L) Potassium 3.5 mmol/L3 (Normal is Blood [facility] 3.5-5.1 mmol/L) Chloride 105 mmol/L4 (Normal is 98-107 Blood [facility] mmol/L) CO2 30.0 mmol/L5 (Normal is Blood [facility] 20.0-31.0 mmol/L) Anion Gap 4 mmol/L (Normal is 3-11 Blood [facility] mmol/L) BUN 9 mg/dL6 (Normal is 9-23 Blood [facility] mg/dL) Creatinine 0.95 mg/dL7 (Normal is Blood [facility] 0.60-1.30 mg/dL) BUN/Creat Ratio 9.47 Ratio (Normal is Blood [facility] 6.00-22.00 Ratio) Calcium 8.3 mg/dL8 (Normal is Blood [facility] 8.5-10.0 mg/dL) Albumin. Level 1.7 gm/dL9 (Normal is Blood [facility] 3.4-5.0 gm/dL) TP 6.0 gm/dL10 (Normal is Blood [facility] 6.4-8.2 gm/dL) A/G Ratio 0.4 Ratio (Normal is Blood [facility] 1.0-2.5 Ratio) T Bili 0.40 mg/dL11 (Normal is Blood [facility] 0.30-1.20 mg/dL) Alk Phos 291 Intl_units/L12 (Normal is 46-116 Blood [facility] Intl_units/L) AST 22 Intl_units/L13 (Normal is 15-37 Blood [facility] L ab Intl_units/L) ALT 16 units/L14 (Normal is 10-49 Blood [facility] units/L) Estimated Creatinine 55.35 mL/min15 Clearance eGFR Non- 67.43 (Normal is >=60) Blood Faroese eGFR 78.15 (Normal is >=60) Blood [place] eGFR Pediatric Not Reported (Normal is >=75 Blood mL/min/1.97u911 mL/min/1.73m2) Globulin 4.3 gm/dL (Normal is Blood [facility] 1.9-3.7 gm/dL) MAR Glucose Result 275 MAR Glucose Result 308 MAR Glucose Result 53 05/06/21 Test Result Reference Range Specimen Source Laborator y WBC 6.70 x10e3/mcL (Normal is Blood [facility] 4.30-11.00 x10e3/mcL) RBC 3.33 x10e6/mcL (Normal is Blood [facility] 4.20-5.40 x10e6/mcL) Hgb 9.30 gm/dL (Normal is Blood [facility] 12.00-14.00 gm/dL) Hct 28.60 % (Normal is Blood [facility] 36.00-42.00 %) MCV 85.9 Femtoliters (Normal is Blood [facility] 80.0-100.0 Femtoliters) MCH 27.80 pg (Normal is Blood [facility] 26.00-33.00 pg) MCHC 32.30 gm/dL (Normal is Blood [facility] 31.00-36.00 gm/dL) RDW-CV 14.50 % (Normal is Blood [facility] 11.00-17.00 %) Plt 339 x10e3/mcL (Normal is Blood [facility] 150-375 x10e3/mcL) MPV 8.10 Femtoliters (Normal is Blood [facility] 7.40-11.40 Femtoliters) NRBC % 0 % (Normal is 0-1 %) Blood [facility] Neut % Auto 73.9 % (Normal is Blood [facility] 40.0-70.0 %) Lymph % Auto 16.2 % (Normal is Blood [facility] 25.0-40.0 %) [place] % Auto 7.7 % (Normal is Blood [facility] 0.0-14.0 %) Eos % Auto 0.9 % (Normal is Blood [facility] 0.0-6.0 %) Baso % Auto 1.3 % (Normal is Blood [facility] 0.0-5.0 %) Neut # Auto 5.0 x10e3/mcL (Normal is Blood [facility] 2.0-11.0 x10e3/mcL) Lymph # Auto 1.1 x10e3/mcL (Normal is Blood [facility] 0.0-5.0 x10e3/mcL) [place] # Auto 0.5 x10e3/mcL (Normal is Blood [facility] 0.0-1.8 x10e3/mcL) Eos # Auto 0.1 x10e3/mcL (Normal is Blood [facility] 0.0-0.7 x10e3/mcL) Baso # Auto 0.1 x10e3/mcL (Normal is Blood [facility] 0.0-0.2 x10e3/mcL) Glucose Level 213 mg/dL17 (Normal is 74-110 Blood [facility] mg/dL) Sodium 135 mmol/L18 (Normal is Blood [facility] 136-145 mmol/L) Potassium 4.0 mmol/L19 (Normal is Blood [facility] 3.5-5.1 mmol/L) Chloride 103 mmol/L20 (Normal is 98-107 Blood [facility] mmol/L) CO2 28.0 mmol/L21 (Normal is Blood [facility] 20.0-31.0 mmol/L) Anion Gap 4 mmol/L (Normal is 3-11 Blood [facility] mmol/L) BUN 11 mg/dL22 (Normal is 9-23 Blood [facility] mg/dL) Creatinine 0.93 mg/dL23 (Normal is Blood [facility] 0.60-1.30 mg/dL) BUN/Creat Ratio 11.83 Ratio (Normal is Blood [facility] 6.00-22.00 Ratio) Calcium 8.2 mg/dL24 (Normal is Blood [facility] 8.5-10.0 mg/dL) Mg Lvl 1.8 mg/dL25 (Normal is Blood [facility] 1.8-2.4 mg/dL) Estimated Creatinine 56.54 mL/min26 Clearance eGFR Non- 69.18 (Normal is >=60) Blood Faroese eGFR 80.18 (Normal is >=60) Blood [place] eGFR Pediatric Not Reported (Normal is >=75 Blood mL/min/1.43d171 mL/min/1.73m2) 05/03/21 Test Result Reference Range Specimen Source Laborator y Glucose Level 251 mg/dL (Normal is 74-110 Blood [facility] mg/dL) Sodium 134 mmol/L (Normal is 136-145 Blood [facility] mmol/L) Potassium 3.9 mmol/L (Normal is 3.5-5.1 Blood [facility] mmol/L) Chloride 102 mmol/L (Normal is 98-107 Blood [facility] mmol/L) CO2 27.0 mmol/L (Normal is Blood [facility] 20.0-31.0 mmol/L) Anion Gap 5 mmol/L (Normal is 3-11 Blood [facility] mmol/L) BUN 10 mg/dL (Normal is 9-23 Blood [facility] mg/dL) Creatinine 0.90 mg/dL (Normal is Blood [facility] 0.60-1.30 mg/dL) BUN/Creat Ratio 11.11 Ratio (Normal is Blood [facility] 6.00-22.00 Ratio) Calcium 8.1 mg/dL (Normal is Blood [facility] 8.5-10.0 mg/dL) Mg Lvl 1.7 mg/dL (Normal is 1.8-2.4 Blood [facility] mg/dL) Phosphorus 3.9 mg/dL (Normal is 2.5-5.1 Blood [facility] mg/dL) Estimated Creatinine 58.42 mL/min28 Clearance eGFR Non- 71.98 (Normal is >=60) Blood Faroese eGFR 83.43 (Normal is >=60) Blood eGFR Pediatric Not Reported (Normal is >=75 Blood mL/min/1.59z248 mL/min/1.73m2) Troponin TNIH <2.50 ng/L (Normal is Blood [facility] 0.00-34.11 ng/L) Troponin TNIH <2.50 ng/L (Normal is Blood [facility] 0.00-34.11 ng/L) 05/02/21 Test Result Reference Range Specimen Source Laborator y WBC 13.70 x10e3/mcL (Normal is 4.30-11.00 Blood [facility] Lab x10e3/mcL) RBC 3.49 x10e6/mcL (Normal is 4.20-5.40 Blood [facility] x10e6/mcL) Hgb 9.70 gm/dL (Normal is 12.00-14.00 Blood [facility] Lab gm/dL) Hct 30.20 % (Normal is 36.00-42.00 %) Blood [facility] Lab MCV 86.4 Femtoliters (Normal is 80.0-100.0 Blood [facility] Lab Femtoliters) MCH 27.80 pg (Normal is 26.00-33.00 Blood [facility] Lab pg) MCHC 32.10 gm/dL (Normal is 31.00-36.00 Blood [facility] Lab gm/dL) RDW-CV 14.10 % (Normal is 11.00-17.00 %) Blood [facility] Lab Plt 399 x10e3/mcL (Normal is 150-375 Blood [facility] Lab x10e3/mcL) MPV 8.10 Femtoliters (Normal is 7.40-11.40 Blood [facility] Lab Femtoliters) NRBC % 0 % (Normal is 0-1 %) Blood [facility] Lab Neut % Auto 85.2 % (Normal is 40.0-70.0 %) Blood [facility] Lymph % Auto 9.2 % (Normal is 25.0-40.0 %) Blood [facility] [place] % Auto 4.3 % (Normal is 0.0-14.0 %) Blood [facility] Eos % Auto 0.6 % (Normal is 0.0-6.0 %) Blood [facility] L ab Baso % Auto 0.7 % (Normal is 0.0-5.0 %) Blood [facility] L ab Neut # Auto 11.6 x10e3/mcL (Normal is 2.0-11.0 Blood [facility] L ab x10e3/mcL) Lymph # Auto 1.3 x10e3/mcL (Normal is 0.0-5.0 Blood [facility] x10e3/mcL) [place] # Auto 0.6 x10e3/mcL (Normal is 0.0-1.8 Blood [facility] x10e3/mcL) Eos # Auto 0.1 x10e3/mcL (Normal is 0.0-0.7 Blood [facility] x10e3/mcL) Baso # Auto 0.1 x10e3/mcL (Normal is 0.0-0.2 Blood [facility] x10e3/mcL) Albumin. Level 1.9 gm/dL (Normal is 3.4-5.0 gm/dL) Blood [facility] Lab TP 6.6 gm/dL (Normal is 6.4-8.2 gm/dL) Blood [facility] Lab A/G Ratio 0.4 Ratio (Normal is 1.0-2.5 Ratio) Blood [facility] Lab T Bili 0.60 mg/dL (Normal is 0.30-1.20 Blood [facility] La b mg/dL) Alk Phos 353 Intl_units/L (Normal is 46-116 Blood [facility] L ab Intl_units/L) AST 26 Intl_units/L (Normal is 15-37 Blood [facility] Intl_units/L) ALT 18 units/L (Normal is 10-49 units/L) Blood [facility] Lab Mg Lvl 1.9 mg/dL (Normal is 1.8-2.4 mg/dL) Blood [facility] Lab Globulin 4.7 gm/dL (Normal is 1.9-3.7 gm/dL) Blood [facility] Lab 04/30/21 Test Result Reference Range Specimen Source Laborator y Albumin. Level 1.7 gm/dL (Normal is 3.4-5.0 gm/dL) Blood [facility] Lab TP 6.1 gm/dL (Normal is 6.4-8.2 gm/dL) Blood [facility] Lab A/G Ratio 0.4 Ratio (Normal is 1.0-2.5 Ratio) Blood [facility] Lab T Bili 0.60 mg/dL (Normal is 0.30-1.20 Blood [facility] La b mg/dL) Alk Phos 348 Intl_units/L (Normal is 46-116 Blood [facility] L ab Intl_units/L) AST 24 Intl_units/L (Normal is 15-37 Blood [facility] Lab Intl_units/L) ALT 19 units/L (Normal is 10-49 units/L) Blood [facility] Lab Globulin 4.4 gm/dL (Normal is 1.9-3.7 gm/dL) Blood [facility] Lab 04/25/21 Test Result Reference Range Specimen Source Laborator y D Dimer 2.20 mg/L30 (Normal is 0.19-0.49 Blood [facility] La boratory mg/L) Hgb A1C >14.00 % (Normal is 3.80-5.70 %) Blood Est Avg Glucose >355 mg/dL (Normal is 70-130 mg/dL) Blood 04/24/21 Test Result Reference Range Specimen Source Laborator y Segs Man 92 % (Normal is 40-70 Blood [facility] Labora tory %) Lymphs Man 5 % (Normal is 25-40 Blood [facility] Labora tory %) [place] Man 3 % (Normal is 0-14 Blood [facility] Laborat ory %) Segs # Man 24 x10e3/mcL (Normal is 2-7 Blood [facility] Laborato ry x10e3/mcL) Lymphs # Man 1.3 x10e3/mcL (Normal is Blood [facility] 1.3-4.4 x10e3/mcL) [place] # Man 0.8 x10e3/mcL (Normal is Blood [facility] 0.0-1.4 x10e3/mcL) RBC Morph Normal (Normal is Blood [facility] Normal) Plt Morph Normal (Normal is Blood [facility] Normal) Plt Est Adequate (Normal is Blood [facility] Adequate) PT 10.60 Seconds (Normal is Blood [facility] 9.30-11.40 Seconds) INR 1.02 (Normal is Blood [facility] 0.90-1.10) PTT 25.20 Seconds (Normal is Blood [facility] 24.50-32.80 Seconds) Lipase Lvl 531 units/L (Normal is Blood [facility] 73-393 units/L) Lactic Acid Lvl 1.20 mmol/L (Normal is Blood [facility]ato ry 0.40-2.00 mmol/L) CRP 19.90 mg/dL (Normal is Blood [facility] 0.20-0.90 mg/dL) Calc Osmo 277 (Normal is Blood [facility] 285-295) Calc Osmo 275 (Normal is Blood [facility] 285-295) BNP 63.6 pg/mL (Normal is Blood [facility] 0.0-100.0 pg/mL) Troponin TNIH 5.0 ng/L (Normal is Blood [facility] 0.0-51.4 ng/L) Cholesterol 100.0 mg/dL (Normal is Blood [facility] 0.0-199.0 mg/dL) Trig 185 mg/dL (Normal is 0-150 Blood [facility] Labora tory mg/dL) HDL 16 mg/dL (Normal is 40-60 Blood [facility] Labor[facility] tory mg/dL) LDL Direct 44 (Normal is Blood [facility] 0-129) LDL/HDL Ratio 3 Blood [facility] Laboratory T4 Free 0.69 ng/dL (Normal is Blood [facility] Lab 0.89-1.76 ng/dL) TSH 0.583 mc Intl (Normal is Blood [facility] units/mL 0.358-3.740 mc Intl units/mL) Procalcitonin 45.16 ng/mL31 (Normal is Blood [facility] Lab 0.00-0.50 ng/mL) Ur Color Yellow (Normal is U CleanCatch [facility] Laboratory Yellow) Ur Clarity Clear (Normal is U [employer]Catch [facility] Laboratory Clear) Ur Spec Grav <=1.005 (Normal is U [employer]atch [facility] Laboratory 1.001-1.035) Ur pH 5.5 (Normal is U CleanCatch [facility] 4.6-8.0) Ur Leuk Est Negative (Normal is U CleanCatch [facility] Negative) Ur Nitrite Positive (Normal is U CleanCatch [facility] Negative) Ur Protein Trace mg/dL (Normal is U CleanCatch [facility] Negative mg/dL) UR Glucose >=1000 mg/dL (Normal is U CleanCatch [facility] Negative mg/dL) Ur Ketones Negative mg/dL (Normal is U CleanCatch [facility] Negative mg/dL) Ur Urobilinogen 0.2 EU/dL (Normal is <=1 U CleanCatch [facility] atory EU/dL) Ur Bili Negative (Normal is U CleanCatch [facility] Negative) Ur Blood Moderate (Normal is U CleanCatch [facility] Negative) Urine Culture In Process U CleanCatch [facility] Ur WBC 3-4 /HPF (Normal is 0-2 U CleanCatch [facility] /HPF) Ur RBC 5-9 /HPF (Normal is 0-2 U CleanCatch [facility] /HPF) Ur Bacteria 1+ (Normal is None U [facility]atch [facility] ory Seen) Ur Squam Epithelial 0-5 /HPF (Normal is None U [facility]atch [facility] Seen /HPF) Ur WBC Clumps Present (Normal is None U CleanCatch [facility] tory seen) Ur Mucous Few /HPF (Normal is None U CleanCatch [facility] ory Seen /HPF) 1Result Comment: Calculated using method: Cockroft-Gault 2Result Comment: result 3Result Comment: result 4Result Comment: result 5Result Comment: result 6Result Comment: result 7Result Comment: result 8Result Comment: result 9Result Comment: result 10Result Comment: result 11Result Comment: result 12Result Comment: result 13Result Comment: result 14Result Comment: result 15Result Comment: result 16Result Comment: Not reported for adult patients ( > 18 years old ). 17Result Comment: Calculated using method: Cockroft-Gault 18Result Comment: result 19Result Comment: result 20Result Comment: result 21Result Comment: result 22Result Comment: result 23Result Comment: result 24Result Comment: result 25Result Comment: result 26Result Comment: result 27Result Comment: Not reported for adult patients ( > 18 years old ). 28Result Comment: Calculated using method: Cockroft-Gault 29Result Comment: Not reported for adult patients ( > 18 years old ). 30Result Comment: Result Called to and read back by MONICA TEJEDA RN_ on 04/25/2021 20:52:45 INDOOR LANDSCAPE ARCHITECT by se_. 31Result Comment: Result Called to and read back by Trinity Pedraza RN on 04/25/2021 01:43:38 INDOOR [employer]ANDSCAPE ARCHITECT by OO. Laboratory Information [facility] Lab CLIA Number: [id number] [address] Lab CLIA Number: [id number] [address] Lab CLIA Number: [id number] [address] [facility] CLIA Number: [id number] [facility] [place] [address] [place] [address] [facility] CLIA Number: [id number] [facility] [place] [address] [place] [address] [facility] CLIA Number: [id number] [facility] [place] [address] [place] [address] Lab CLIA Number: [id number] [address] [facility] CLIA Number: [id number] [facility] [place] [facility] [address] [place] [address] [facility] CLIA Number: [id number] [facility] [place] [address] [place] [address]- [facility] Orders for Microbiology Reports Name Date Culture Blood (Blood Culture) 04/28/21 Culture Blood (Blood Culture) 04/28/21 Culture Urine 04/24/21 Culture Blood (Blood Culture) 04/24/21 Culture Blood (Blood Culture) 04/24/21 Microbiology Reports TEST:Blood Culture COLLECTED DATE/TIME:04/28/21 3:01 PM FINAL REPORT:No growth at 5 days. TEST:Blood Culture COLLECTED DATE/TIME:04/28/21 3:01 PM FINAL REPORT:No growth at 5 days. TEST:Urine Culture COLLECTED DATE/TIME:04/24/21 10:21 PM PRELIMINARY REPORT:>100,000 cfu/ml Klebsiella pneumoniae subsp pneumoniae Susceptibility pending due to policy checker backorder. TEST:Blood Culture COLLECTED DATE/TIME:04/24/21 9:26 PM FINAL REPORT:From Aerobic and Anaerobic Bottles- Escherichia coli TEST:Blood Culture COLLECTED DATE/TIME:04/24/21 9:26 PM FINAL REPORT:From Aerobic and Anaerobic Bottles- Escherichia coli For Susceptibility See Vital Signs 05/07/21 Temperature (Route Not Specified) 36.6 DegC (Norm al is 36.5-37.3 DegC) Peripheral Pulse Rate 87 bpm (Normal is 60-100 bpm) Respiratory Rate 18 br/min (Normal is 12-20 br /min) Blood Pressure 133/79 mmHg (Normal is 90-135/60 -80 mmHg) 04/24/21 Height 160.02 cm Weight 58.9 kg Social History Social History Type Response Sex Female Hospital Discharge Instructions Patient Idhgnmxuy19/02/2022 02:06:15Handwashing: Tips for Patients, Family, and FriendsHandwashing: Tips for Patients, Family, and Friends Germs are everywhere around us. Normally, we live with germs without getting sick. In certain cases,harmful germs cause us to get sick with an infection. Or we can spread harmful germs to others and cause them to get sick. Keeping your hands clean is the best way to prevent getting or spreading germsthat cause infection. Wash your hands with soap and water or use an alcohol-based hand furnace cleaner. When to clean your hands: For patients In the hospital or in your home, you can come in contact with many harmful germs. To help prevent infection, wash your hands often, especially: ???After using the bathroom ???Before and after eating ???After coughing or sneezing ???After using a tissue ???After touching or changing a dressing or bandage ???After touching any object or surface that may be contaminated ???After touching an animal during a pet therapy session (hospital) ???After touching an animal, cleaning up after a pet, or??preparing food for pets (home) If you don???t have access to soap and water, use an alcohol-based hand gel containing at least 60% alcohol. These products kill most germs and are easy to use. But if your hands are visibly dirty, usesoap and water (not alcohol-based hand gel). When to clean your hands: For family and friends When visiting or caring for a loved one, washing your hands or using an alcohol- based hand furnace cleaner can help stop germs from spreading. Wash your hands: ???Before entering and after leaving the patient???s room ???As soon as you remove gloves or other protective clothing ???After changing a dressing or bandage ???After any contact with blood or other body fluids ???After touching or changing the patient???s bed linen or towels ???After touching an animal during a pet therapy session (hospital) ???After touching an animal, cleaning up after a pet, or??preparing food for pets (home) Many hospitals have sinks or gel dispensers right outside patient rooms. If not, carry a bottle of alcohol-based hand gel with you. Use it every time you visit. If your hands are visibly dirty, use soap and water (not alcohol-based hand gel). Tips for good handwashing Here are some suggestions to follow: ???Use either cold or warm water and plenty of soap. Work up a good lather. ???Clean the whole hand, including under your nails, between your fingers, and up the wrists. ???Wash for at least 15 to 30 seconds. Don???t just wipe. Scrub well. Sing the [place].comday song to reach the 30- second goal ???Rinse. Let the water run down your fingers, not up your wrists. ???Dry your hands well. Use a paper towel to turn off the faucet and open the door. Time matters The longer you wash your hands, the more germs you???ll remove. Most people wash their hands for 6 to 7 seconds. But at least??15 seconds??are needed to remove germs. Singing [employer]flow Birthday or the [place] Song are examples of??how long??15 seconds would be.??To protect yourself and others from infection, washing for 30 seconds is best. How to use an alcohol-based hand furnace cleaner Alcohol-based hand marketing technologist may kill more germs than soap and water. Use them when your hands aren???t visibly dirty. For best results, follow these steps: ???Choose a gel or spray that contains at least 60% alcohol. Products with less alcohol may not killgerms. ???Spread about a tablespoon of furnace cleaner in the palm of one hand. ???Rub your hands together briskly, cleaning the backs of your hands, the palms, between your fingers, and up the wrists. ???Rub until the furnace cleaner is gone, and your hands are completely dry. Antibacterial soaps: ???Come in liquid or bar form and are used with water ???Are no better at removing germs than plain soap Alcohol-based hand marketing technologist: ???Come in gels or sprays that don???t need water ???Work as well or better than washing with soap and water ?? 5270-7482 [employer]. All rights reserved. This information is not intended as a substitute for professional medical care. Always follow your healthcare professional's instructions. 04/30/2021 02:06:15Fall Due To Dizziness, Weakness, Or Loss Of BalanceFall Because of??Dizziness, Weakness, or Loss of Balance The symptoms that led to your fall have been evaluated. Your healthcare provider feels it is safe for you to return home. Many things can cause you to become dizzy. Everyone means a little something different by the word dizzy. People may describe their symptoms using these words: ???It doesn???t feel right in??my head ???It feels like spinning in??my head ???It seems like the room is spinning ???My balance feels off ???I feel lightheaded, like I am going to pass out All these descriptions can have real causes.?? Your balance mechanism is in your inner ear. Anything disturbing it can make you feel dizzy, whetherit is from a cold, an injury, or many other things. Anything that causes your blood pressure to dropsuddenly can make you feel lightheaded, or like you are going to faint. This is because at that moment there might not be enough blood flowing to your brain. Causes include: ???Medicines ???Dehydration ???Standing up or bending over too quickly ???Becoming overheated ???Taking a hot shower or bath ???Straining hard while lifting something or using the toilet ???Strokes, heart attack, heart valve disease, very slow or very fast heart rate ???Low blood sugar ???Ear infection ???Hyperventilation ???Anemia ???Injury ???Infection ???Panic attack ??? You may be at risk of repeat falls. Take precautions described below to prevent another fall. Home care ???If you become lightheaded or dizzy, lie down immediately or sit and lean forward with your head down. It is better to do this than fall and seriously hurt or injure yourself. ???Rest today. When changing position,??take a moment to be sure any dizziness goes away before standing and walking. ???If you have been prescribed a walker, be sure to use it whenever you walk, even if it is a short distance. ???If you were injured during the fall, follow the advice from your healthcare provider regarding care of your injury. ???Be sure your healthcare provider knows all the medicines, herbs, and supplements you take. Some medicines can cause dizziness. ???Cut back on alcohol use. Follow-up care Unless given other advice, call your healthcare provider on the next office day to advise of your fall and to schedule an appointment. You may require further treatment for??the underlying condition that caused today???s fall. If X-ray or a CT scan were done, you will be notified of the results, especially if it affects treatment. Call 911 Call 911 if any of these occur: ???Trouble breathing ???Confused or trouble arousing ???Fainting or loss of consciousness ???Rapid or very slow heart rate ???Seizure ???Trouble with speech or vision, weakness of an arm or leg ???Trouble walking or talking, loss of balance ???Numbness or weakness in one side of your body, facial droop When to seek medical advice Call your healthcare provider right away if any of the following occur: ???Another fall ???Continued dizzy spells ???Severe headache ???Blood in vomit or stools (black or red color) ?? [id number] [employer]. All rights reserved. This information is not intended as a substitute for professional medical care. Always follow your healthcare professional's instructions. 04/30/2021 02:06:15Diabetes with High Blood SugarDiabetes with High Blood Sugar You have been treated for high blood sugar (hyperglycemia). This may be because of an infection or other illness. Or it may be from eating too many sweets or starches. Or it may be from not taking enough insulin or other diabetes medicine. Home care Check your blood sugar level at least 2 times a day. Write it down the results. Do this before breakfast and before dinner. If you take insulin, also write down your routine insulin dose. Note any other doses you needed based on your sliding scale or as advised by your healthcare provider. Do this forthe next 3 to 5 days. High blood sugar may cause symptoms that you can learn to spot. These include: ???Peeing often ???Thirst ???Headache ???Breath that smells fruity ???Nausea or vomiting ???Belly pain If you have symptoms of high blood sugar, use a blood or urine test to find out what your blood sugar level is. If it is above your usual range, use the sliding scale regular insulin dose from your healthcare provider. Call your provider for advice if you were not given a range for your insulin dose. If your blood sugar is over 240 mg/dL, check your urine for ketones. Follow-up care Follow up with your healthcare provider, or as advised. You may need to meet with your provider in the next week. You will likely look at your blood sugar records together. You may need to change your dose of insulin or other diabetes medicine. When to seek medical advice Call your healthcare provider right away if these occur: ???Symptoms of high blood sugar that don't get better with the treatment your provider advised. Thisis especially true if you also have ketones in your urine. ???Blood sugar over 300 mg/dl. If you can???t reach your healthcare provider, go to a hospital emergency room or urgent care center. Call 911 Call 911 if you have any of the following: ???Confusion ???Dizziness, lightheadedness, or loss of consciousness ???Shortness of breath ???Chest pain ???Weakness of an arm, leg, or one side of the face ???Sudden trouble with speech or vision ?? 8922-1910 [employer]. All rights reserved. This information is not intended as a substitute for professional medical care. Always follow your healthcare professional's instructions. 04/30/2021 02:06:15Hyperkalemia, Discharge InstructionsDischarge Instructions for Hyperkalemia You have been diagnosed with hyperkalemia. This means you have a high level of potassium in your blood. Potassium is important to the function of the nerve and muscle cells, including the cells of the heart. But a high level of potassium in the blood cause serious problems such as abnormal heart rhythms and even heart attack. Diet changes Eat less of these potassium-rich foods: ???Bananas (do not eat??bananas) ???Apricots, fresh or dried ???Oranges and orange juice ???Grapefruit juice ???Tomatoes, tomato sauce, and tomato juice ???Spinach ???Green, leafy vegetables, including salad greens, kale, broccoli, chard, and collards ???Melons of all kinds ???Peas ???Beans ???Potatoes ???Sweet potatoes ???Avocados and guacamole ???Vegetable juice (homemade or store-bought) and vegetable juice cocktail ???Fruit juices ???Nuts, including pistachios, almonds, peanuts, hazelnuts, [place], cashew, mixed ???Lite or reduced sodium salt Other home care ???Tell your healthcare provider about all prescription and yiti-ofp-ehsvldt medicines you are taking. Certain??medicines can increase potassium levels. ???Take all medicines exactly as directed. ???Have your potassium levels checked regularly. ???Keep all follow-up appointments. Your healthcare provider needs to monitor your condition closely. ???Learn to take your own pulse. If your pulse is less than 60??beats per minute or irregular, call your provider. Follow-up Follow up with your healthcare provider, or as advised. When to call your healthcare provider Call your healthcare provider right away??if you have any of the following: ???Slow, irregular heartbeat ???Fatigue ???Dizziness ???Lightheadedness ???Confusion ???Weakness Call 911 Call 911 if you have any of these: ???Chest pain ???Fainting ???Shortness of breath ?? [id number] [employer]. All rights reserved. This information is not intended as a substitute for professional medical care. Always follow your healthcare professional's instructions. 04/30/2021 02:06:15Urinary Tract Infections in WomenUrinary Tract Infections in Women Urinary tract infections (UTIs) are most often caused by??bacteria. These bacteria enter the urinarytract. The bacteria may come from inside the body. Or they may travel from the skin outside the??rectum or vagina into the urethra. Female anatomy makes it easy for bacteria from the bowel??to enter a woman???s urinary tract, which is the most common source of UTI. This means women develop UTIs more often than men. Pain in or around the urinary tract is a common UTI symptom. But the only way to know for sure if you have a UTI for the healthcare provider to test your urine. The two tests that may be done are the urinalysis and urine culture. Types of UTIs ???Cystitis. A bladder infection (cystitis) is the most common UTI in women. You may have urgent or frequent need to pee. You may also have??pain, burning when you pee, and bloody urine. ???Urethritis. This is an inflamed urethra, which is the tube that carries urine from the bladder tooutside the body. You may have lower stomach or back pain. You may also have urgent or frequent needto pee. ???Pyelonephritis. This is a kidney infection. If not treated, it can be serious and damage your kidneys. In severe cases, you may need to stay in the??hospital. You may have a fever and lower back pain. Medicines to treat a UTI Most UTIs are treated with antibiotics. These kill the bacteria. The length of time you need to takethem depends on the type of infection. It may be as short as 3 days. If you have repeated UTIs, you may need a low-dose antibiotic??for several months. Take antibiotics exactly as directed. Don???t stop taking them until all of the medicine is gone. If you stop taking the antibiotic too soon, the infection may not go away. You may also develop a resistance to the antibiotic. This can make it much harder to treat. Lifestyle changes to treat and prevent UTIs The lifestyle changes below will help get rid of your UTI. They may also help prevent future UTIs. ???Drink plenty of fluids. This includes water, juice, or other caffeine-free drinks. Fluids help flush bacteria out of your body. ???Empty your bladder. Always empty your bladder when you feel the urge to pee. And always pee before going to sleep. Urine that stays in your bladder can lead to infection. Try to pee before and aftersex as well. ???Practice good personal hygiene. Wipe yourself from front to back after using the toilet. This helps keep bacteria from getting into the urethra. ???Use condoms during sex. These help prevent UTIs caused by sexually transmitted bacteria. Also don't use spermicides during sex. These can increase the risk for UTIs. Choose other forms of control instead. For women who tend to get UTIs after sex, a low-dose of a preventive antibiotic may be used. Be sure to discuss this option with your healthcare provider. ???Follow up with your healthcare provider as directed. He or she may test to make sure the infection has cleared. If needed, more treatment may be started. ?? [id number] [employer]. All rights reserved. This information is not intended as a substitute for professional medical care. Always follow your healthcare professional's instructions. 04/30/2021 02:06:15SepsisSepsis?? To treat sepsis, antibiotics and fluids may by given through an intravenous (IV) line. Sepsis is a very serious condition. It happens when your body responds with widespread inflammation to a bad infection, or to bacteria in??your bloodstream (bacteremia). Sepsis can be deadly. Blood pressure may drop. The lungs and kidneys may start to fail. Sepsis is a medical emergency. Call 911 right away. Risk factors Those most at risk for sepsis are: ???Infants or older adults ???People who have an illness that weakens their immune system,??such as cancer, AIDS, or diabetes ???People being treated with chemotherapy medicines or radiation, which weakens the immune system ???People who have had a transplant ???People with long-term (chronic) lung, kidney, or heart disease ???People with a very severe infection such as pneumonia, meningitis, or a urinary tract infection When to call 911 Sepsis is a medical emergency. Call 911 right away if you have a fever with any of these symptoms: ???Chills and shaking ???Fast heartbeat and breathing ???Trouble breathing ???Severe nausea or uncontrolled vomiting ???Confusion, disorientation, drowsiness, or dizziness ???Decreased urination ???Severe pain, including in the back or joints?? What to expect in the emergency room ???Blood and urine tests are done to look for bacteria. They also check for organ failure. ???Blood, urine, or sputum cultures may be taken. The samples are sent to a lab. They are placed in a special container. Any bacteria should grow in 24 to 48 hours. ???X-rays or other imaging tests may be done. A person with sepsis will be admitted to the hospital and treated with antibiotics. Treatment may also include oxygen and IV (intravenous) fluids. Depending on the person's physical condition and health history, they may be admitted right to the intensive care unit (ICU). ?? [id number] [employer]. All rights reserved. This information is not intended as a substitute for professional medical care. Always follow your healthcare professional's instructions. 04/30/2021 02:06:15Acute Kidney Failure, Discharge InstructionsDischarge Instructions for Acute Kidney Injury You have been diagnosed with acute kidney injury. This means that your kidneys are not working properly. When both kidneys are healthy, they help filter out fluid and waste from the blood and body.??Acute kidney injury has many causes. These include urinary blockages, infection, lack of enough blood supply, and medicines that can injure??kidneys. In some cases, acute kidney injury is short- term (temporary). This type lasts several days to a few months. This is because the kidney can repair itself. But acute kidney injury can also result in chronic kidney disease or end stage renal failure. Here aresome instructions for you to follow as you recover. Home care ???Follow any instructions for eating and drinking given to you by your healthcare provider. oDrink less fluid, if instructed by your healthcare provider. oKeep a record of everything you eat and drink. ???Measure the amount of urine and stool you have each day. ???Weigh yourself every day, at the same time of day, and in the same kind of clothes. Keep a daily record of your daily weights. ???Take your temperature every day. Keep a record of the results. ???Learn to take your own blood pressure (BP). Your healthcare provider can teach you how to correctly measure your BP. Keep a record of your results. Bring the record to your follow-up appointments. Ask your healthcare provider when you should seek emergency medical attention. Your provider will tellyou what blood pressure reading is dangerous. ???Stay away from people who have infections. This includes people with colds, bronchitis, or skin conditions. ???Practice good personal??hygiene. Wash your hands often. This is especially important if you have a catheter in place when you leave the hospital. Doing so helps keep you safe from infection. ???Take your medicines exactly as directed. ???You may need frequent blood and urine tests. These are done to monitor your kidney function. Follow-up care Follow up with your healthcare provider, or as advised. When to call your healthcare provider Call your??healthcare provider??right away if you have any of these: ???Signs of bladder infection, such as urinating more often, burning or pain when you pee, pain above your pubic bone, blood in your urine, or trouble starting your urine stream ???Signs of infection around your catheter, such as redness, swelling, warmth, or fluid leaking ???Rapid weight loss or weight gain, such as 3??pounds or more in 24 hours or 6 pounds or more in 7 days ???Fever above 100.4?? F ( 38??C ) or as directed by your healthcare provider ???Chills ???Muscle aches ???Night sweats ???Very little or no urine output ???Swelling of your hands, legs, or feet ???Back pain ???Abdominal pain ???Extreme tiredness ?? [id number] [employer]. All rights reserved. This information is not intended as a substitute for professional medical care. Always follow your healthcare professional's instructions.
--- OUTSIDE RECORDS SUMMARY | 2022-02-22 00:03 | XMS_ITS | Continuity of Care Document ---
:04/03/1966 Author Organization [facility] Address [address] [place] [address]- Care Team Providers Name Role Phone Laurita Kothari Primary Care Physician Encounter [facility] [id number] Date(s): 07/15/21 - 07/16/21 [facility] [address] [place], [place] [address] Encounter Diagnosis Anemia (Discharge Diagnosis) - 07/15/21 Pain of right sacroiliac joint (Discharge Diagnosis) - 07/15/21 Fall (Discharge Diagnosis) - 07/15/21 Cervical stenosis of spine (Discharge Diagnosis) - 07/15/21 Strain of upper arm, left (Discharge Diagnosis) - 07/15/21 Discharge Disposition: ED Home, Routine Attending Physician: Shaun Pradhan MD Admitting Physician: Shaun Pradhan MD Referring Physician: No referring, Doctor Reason for Visit FALL HEAD LAC Allergies, Adverse Reactions, Alerts No Known Allergies Medications acetaminophen (Tylenol 325 mg oral tablet) Status: Ordered Start Date: 07/15/21 Stop Date: 07/18/21 2 Tabs By Mouth Now and Every 6 hours as needed for pain for 3 Days. Refills: 0. Ordering provider: Shaun Pradhan MD amLODIPine (amLODIPine 10 mg oral tablet) [facility] Status: Ordered [address], [place] [id number] Start Date: 05/07/21 1 Tabs By Mouth Daily. Refills: 1. Ordering provider: Sen Keenan MD atorvastatin (atorvastatin 40 mg oral tablet) [facility] Status: Ordered [address], [place] [id number] Start Date: 05/07/21 1 Tabs By Mouth Daily. Refills: 0. Ordering provider: Sen Keenan MD insulin detemir (insulin detemir 100 units/mL subcutan eous solution) [facility]: Ordered [address], [place] [id number] Start Date: 05/07/21 0.1 Milliliter Subcutaneous Daily. Refills: 0. Ordering provider: Sen Keenan MD levothyroxine (Synthroid 175 mcg (0.175 mg) oral table t) [facility] Status: Ordered [address], [place] [id number] Start Date: 05/07/21 1 Tabs By Mouth Daily. Refills: 0. Ordering provider: Sen Keenan MD metFORMIN (metFORMIN 500 mg oral tablet) [facility] Status: Ordered [address], [place] [id number] Start Date: 05/07/21 2 Tabs By Mouth 2 Times a Day With Meals. Refills: 0. Ordering provider: Sen Keenan MD sulfamethoxazole-trimethoprim (Bactrim DS 800 mg-160 m g oral tablet) Status: Ordered Start Date: 07/15/21 Stop Date: 07/22/21 1 Tabs By Mouth 2 Times a Day for 7 Days. Refills: 0. Ordering provider: Shaun Pradhan MD Problem List Condition Effective Dates Status Health Status Informant Diabetes(Confirmed) Active Hypertension(Confirmed) Active Procedures Procedure Date Related Diagnosis Body Site Status Collection of venous blood by 07/15/21 Completed venipuncture Results Laboratory List Name Date POC Glucose 07/15/21 UA Microscopic if Ind and Culture if Ind (Urinalysis M icroscopic if Ind and 07/15/21 Culture if Ind) UA Microscopic 07/15/21 Basic Metabolic Panel (BMP) 07/15/21 CBC with Diff 07/15/21 PT INR 07/15/21 PTT 07/15/21 Troponin (TNIH) 07/15/21 Auto Diff 07/15/21 07/15/21 Test Result Reference Range Specimen Source Laborator y WBC 9.37 x10e3/mcL (Normal is Blood [facility] 4.30-11.00 x10e3/mcL) RBC 3.63 x10e6/mcL (Normal is Blood [facility] Laborator [facility] 4.20-5.40 x10e6/mcL) Hgb 10.20 gm/dL (Normal is Blood [facility] 12.00-14.00 gm/dL) Hct 32.20 % (Normal is Blood [facility] 36.00-42.00 %) MCV 88.7 Femtoliters (Normal is Blood [facility] Laborat ory 80.0-100.0 Femtoliters) MCH 28.10 pg (Normal is Blood [facility] 26.00-33.00 pg) MCHC 31.70 gm/dL (Normal is Blood [facility] 31.00-36.00 gm/dL) RDW-CV 13.60 % (Normal is Blood [facility] 11.70-15.00 %) Plt 281 x10e3/mcL (Normal is Blood [facility] Laboratory 150-375 x10e3/mcL) MPV 11.20 Femtoliters (Normal is Blood [facility] Labora tory 0.00-11.00 Femtoliters) Neut % Auto 78.8 % (Normal is Blood [facility] 40.0-70.0 %) Lymph % Auto 13.2 % (Normal is Blood [facility] 25.0-40.0 %) Mcclain % Auto 7.2 % (Normal is Blood [facility] 0.0-14.0 %) Eos % Auto 0.5 % (Normal is Blood [facility] 0.0-6.0 %) Baso % Auto 0.3 % (Normal is Blood [facility] 0.0-2.0 %) Neut # Auto 7.4 x10e3/mcL (Normal is Blood [facility] 2.0-7.0 x10e3/mcL) Lymph # Auto 1.2 x10e3/mcL (Normal is Blood [facility] 1.3-4.4 x10e3/mcL) Mcclain # Auto 0.7 x10e3/mcL (Normal is Blood [facility] 0.0-1.4 x10e3/mcL) Eos # Auto 0.0 x10e3/mcL (Normal is Blood [facility] 0.0-0.5 x10e3/mcL) Baso # Auto 0.0 x10e3/mcL (Normal is Blood [facility] 0.0-0.2 x10e3/mcL) PT 10.10 Seconds (Normal is Blood [facility] 9.30-11.40 Seconds) INR 0.97 (Normal is Blood [facility] 0.90-1.10) PTT 25.60 Seconds (Normal is Blood [facility] 24.50-32.80 Seconds) Glucose Level 366 mg/dL (Normal is Blood [facility] 74-106 mg/dL) POC Glucose 205 mg/dL (Normal is Blood [facility] 70-105 mg/dL) Capillary Blood 205 mg/dL (Normal is Glucose POC Result 74-106 mg/dL) Sodium 137.0 mmol/L (Normal is Blood [facility] 136.0-145.0 mmol/L) Potassium 4.20 mmol/L (Normal is Blood [facility] 3.50-5.10 mmol/L) Chloride 102 mmol/L (Normal is Blood [facility] 98-107 mmol/L) CO2 27.00 mmol/L (Normal is Blood [facility] 21.00-32.00 mmol/L) Anion Gap 8 mmol/L (Normal is 3-11 Blood [facility] Laborat ory mmol/L) BUN 25.0 mg/dL (Normal is Blood [facility] 7.0-18.0 mg/dL) Creatinine 1.06 mg/dL (Normal is Blood [facility] 0.55-1.02 mg/dL) BUN/Creat Ratio 24 Ratio (Normal is 6-22 Blood [facility] Labo ratory Ratio) Calcium 8.30 mg/dL (Normal is Blood [facility] 8.50-10.10 mg/dL) Estimated Creatinine 49.61 mL/min1 Clearance eGFR Non- 59.06 (Normal is Blood [facility] Laborat ory Cambodian >=60) eGFR 68.45 (Normal is Blood [facility] Laboratory Cambodian >=60) eGFR Pediatric Not Reported (Normal is >=75 Blood [facility] Labor atory mL/min/1.73m22 mL/min/1.73m2) Calc Osmo 284 (Normal is Blood [facility] 285-295) Troponin TNIH 8.7 ng/L (Normal is Blood [facility] 0.0-51.4 ng/L) Ur Color Yellow (Normal is U CleanCatch [facility] Yellow) Ur Clarity Cloudy (Normal is U [facility] Clear) Ur Spec Grav 1.020 (Normal is U [facility] 1.001-1.035) Ur pH 5.5 (Normal is U [facility] 4.6-8.0) Ur Leuk Est Trace (Normal is U [facility] Negative) Ur Nitrite Negative (Normal is U [facility] Negative) Ur Protein 100 mg/dL (Normal is U [facility] [...] Process U [facility]Catch [facility] Ur WBC >50 /HPF (Normal is 0-2 U CleanCatch [facility] Laborato ry /HPF) Ur RBC 1-2 /HPF (Normal is 0-2 U [facility]atch [facility] Laborato ry /HPF) Ur Bacteria 4+ (Normal is None U [facility]Catch [facility] Laborat ory Seen) Ur Squam Epithelial 0-5 /HPF (Normal is None U [facility] Seen /HPF) Ur WBC Clumps Present (Normal is None U CleanCatch [facility] Labora tory seen) 1Result Comment: Calculated using method: Cockroft-Gault 2Result Comment: Not reported for adult patients ( > 18 years old ). Laboratory Information [facility] CLIA Number: [id number] [address] Laboratory CLIA Number: [id number] [facility] [address] Laboratory CLIA Number: [id number] [facility] [address] Laboratory CLIA Number: [id number] [facility] [address] Laboratory CLIA Number: [id number] [facility] [address] Orders for Microbiology Reports Name Date Culture Urine 07/15/21 Microbiology Reports TEST:Urine Culture COLLECTED DATE/TIME:07/15/21 4:05 PM PRELIMINARY REPORT:>100,000 cfu/ml Gram Negative Rods Identification and Susceptibility to follow. Vital Signs 07/15/21 Temperature (Route Not Specified) 36.6 DegC (Norm al is 36.5-37.3 DegC) Peripheral Pulse Rate 82 bpm (Normal is 60-100 bpm) Respiratory Rate 18 br/min (Normal is 12-20 br /min) Blood Pressure 141/83 mmHg (Normal is 90-135/60 -80 mmHg) Height 160.02 cm Weight 56.25 kg Social History Social History Type Response Sex Female Hospital Discharge Instructions Patient Rgrtcyvxn45/19/2022 17:14:19High Blood Sugar (Hyperglycemia)High Blood Sugar (Hyperglycemia) Too much sugar (glucose) in your blood is called high blood sugar (hyperglycemia). This can lead to a dangerous condition called ketoacidosis. In severe cases, it can lead to fluid loss (dehydration) and coma. Possible causes of high blood sugar ???Having a poor treatment plan for diabetes?Being sick ???Being under stress ???Taking certain medicines, such as steroids ???Eating too much food, especially carbohydrates ???Being less active than normal ???Not taking enough diabetes medicine Symptoms of high blood sugar High blood sugar may not cause symptoms. If you do have symptoms, they may include: ???Thirst ???Frequent need to urinate ???Feeling tired or drowsy ???Nausea and vomiting ???Itchy, dry skin ???Blurry vision ???Fast breathing and breath that smells fruity?Weakness ???Dizziness ???Wounds or skin infections that don???t heal ???Unexplained weight loss if hyperglycemia lasts for more than a few days?? What to do Do the following: ???Check your blood sugar. ???Drink plenty of sugar-free, caffeine-free liquids such as water. Don???t drink fruit juice. ???Check your blood sugar again every??4??hours. If you take insulin or diabetes medicines, follow your sick-day plan for taking medicine. Call your healthcare provider if you are not able to eat. ???Check your blood or urine for ketones as directed. ???Call your provider if your blood sugar and ketones don't go back to your target range. ???If the value is high, take your diabetes medicines as prescribed. And check your blood sugar moreoften. Doses of medicines such as insulin can be increased slightly if blood sugars stay high. But your provider must approve this. When you have hyperglycemia, drink plenty of water or other sugar-free, caffeine-free liquids. Preventing high blood sugar To help keep your blood sugar from getting too high: ???Control stress. ???When you're ill, follow your sick-day plan.?Follow your meal plan. Eat only the amount of food on your meal plan. ???Stick to your exercise plan. ???Take your insulin or diabetes medicines as directed by your healthcare team. Also test your bloodsugar as directed. If the plan is not working for you, discuss it with your healthcare provider. Other things to do ???Carry a medical ID card or a [employer]. Or wear a medical alert bracelet or necklace. It should say that you have diabetes. It should also say what to do in case you pass out or go into a coma. ???Make sure family, friends, and coworkers know the signs of high blood sugar. Tell them what to doif your blood sugar gets very high and you can???t help yourself. ???Talk with your healthcare team about other things you can do to prevent high blood sugar. ?? Special note: Drink plenty of sugar-free and caffeine-free liquids when you feel symptoms of hyperglycemia. Call your healthcare provider if you keep having episodes of high blood sugar. ?? [id number] [employer]. All rights reserved. This information is not intended as a substitute for professional medical care. Always follow your healthcare professional's instructions. 07/15/2021 17:14:19Bladder Infection, Female (Adult)Bladder Infection,??Female (Adult)?? Urine normally doesn't have any germs (bacteria) in it. But bacteria can get into the urinary tract from the skin around the rectum. Or they can travel in the blood from other parts of the body. Once they are in your urinary tract, they can cause infection in these areas: ???The urethra (urethritis) ???The bladder (cystitis) ???The kidneys (pyelonephritis) The most common place for an infection is in the bladder. This is called a bladder infection. This is one of the most common infections in women. Most bladder infections are easily treated. They are not serious unless the infection spreads to the kidney. The terms bladder infection, UTI, and cystitis are often used to describe the same thing. But they are not always the same. Cystitis is an inflammation of the bladder. The??most common cause of cystitis is an infection. Symptoms The infection causes inflammation in the urethra and bladder. This causes many of the symptoms. The most common symptoms of a bladder infection are: ???Pain or burning when urinating ???Having to urinate more often than normal ???Urgent need to urinate ???Only a small amount of urine comes out ???Blood in urine ???Belly (abdominal) discomfort. This is often in the lower belly above the pubic bone. ???Cloudy urine ???Strong- or bad-smelling urine ???Unable to urinate (urinary retention) ???Unable to hold urine in (urinary incontinence) ???Fever ???Loss of appetite ???Confusion (in older adults) Causes Bladder infections are not contagious. You can't get one from someone else, from a toilet seat, or from sharing a bath. The most common cause of bladder infections is bacteria from the bowels. The bacteria get onto the skin around the opening of the urethra. From there, they can get into the urine. Then they travel up to the bladder, causing inflammation and infection. This often happens because of: ???Wiping incorrectly after urinating. Always wipe from front to back. ???Bowel incontinence ?Procedures such as having a catheter put in ???Older age ???Not emptying your bladder. This can give bacteria a chance to grow in your urine. ???Fluid loss (dehydration) ???Constipation ???Having sex ???Using a diaphragm for control?? Treatment Bladder infections are diagnosed by a urine test and urine culture. They are treated with antibiotics. They often??clear up quickly without problems. Treatment helps prevent a more serious kidney infection. Medicines Medicines can help in the treatment of a bladder infection: ???Take antibiotics until they are used up, even if you feel better. It's important to finish them to make sure the infection has cleared. ???You can use acetaminophen or ibuprofen for pain, fever, or discomfort, unless another medicine was prescribed. If you have long-term (chronic) liver or kidney disease, talk with your healthcare??provider before using??these medicines. Also talk with your provider if you've ever had a stomach ulcer or GI (gastrointestinal) bleeding, or are taking blood-thinner medicines. ???If you are given??phenazopydridine to reduce burning with urination, it will make your urine a bright orange color. This can stain clothing. Care and prevention These self-care steps can help prevent future infections: ???Drink plenty of fluids. This helps to prevent dehydration and flush out your bladder. Do this??unless you must restrict fluids for other health reasons, or your healthcare provider told you not to. ???Clean yourself correctly after going to the bathroom. Wipe from front to back after using the toilet. This helps prevent the spread of bacteria. ???Urinate more often. Don't try to hold urine in for a long time. ???Wear loose-fitting clothes and cotton underwear. Don't wear tight-fitting pants. ???Improve your diet and prevent constipation. Eat more fresh fruits and vegetables, and??fiber. Eatless junk foods and fatty foods. ???Don't have sex until your symptoms are gone. ???Don't have caffeine, alcohol, and spicy foods. These can irritate your bladder. ???Urinate right after you have sex to flush out your bladder. ???If you use control pills and have frequent bladder infections, discuss it with your healthcare provider. Follow-up care Call your healthcare provider if all symptoms are not gone after 3 days of treatment. This is especially important if you have repeat infections. If a culture was done, you will be told if your treatment needs to be changed. If directed, you can call??to find out the results. If X-rays were done, you will be told if the results will affect your??treatment. Call 911 Call 911 if any of the following occur: ???Trouble breathing ???Hard to wake up or??confusion ???Fainting (loss of consciousness) ???Fast heart rate When to get medical advice Call your healthcare provider right away if any of these occur: ???Fever of 100.4??F (38.0??C) or higher, or as directed by your healthcare provider ???Symptoms are not better??after 3 days of treatment ???Back or belly pain that gets worse ???Repeated vomiting, or unable to keep medicine down ???Weakness or dizziness ???Vaginal discharge ???Pain, redness, or swelling in the outer vaginal area (labia) ?? [id number] [employer]. All rights reserved. This information is not intended as a substitute for professional medical care. Always follow your healthcare professional's instructions. 07/15/2021 17:14:19Chronic PainChronic Pain Pain??serves an important role. It lets you know something is wrong that needs your attention. When the body heals, pain normally goes away. When pain lasts longer than 3 months, it's called chronic pain. This is pain that is present even after the body has healed.??Chronic pain can cause mood problems and get in the way of your relationships and your daily life. A number of conditions can cause chronic pain. Some of the more common include: ???Previous surgery ???An old injury ???Infection ???Diseases such as diabetes ???Nerve damage ???Back injury ???Arthritis ???Migraine or other headaches ???Fibromyalgia ???Cancer Depression and stress can make chronic pain symptoms worse.??In some cases, a cause for the pain can't be found.?? Treatment Treatment??can??greatly reduce??pain.??In many cases,??pain can become less severe, occur less often, and interfere less with your daily life.??Chronic pain is often treated with a combination of medicines,??therapies, and lifestyle changes. You will work closely with your healthcare provider to find a treatment plan that works best for you. ???Ask your healthcare provider for a referral to a pain management specialty center. These can provide the most recent and proven pain management strategies, along with emotional support and comprehensive services. ???Several different types of medicines may be prescribed for chronic pain. Work with your healthcare provider to develop a medicine plan that helps manage your pain. ???Physical therapy can help reduce certain types of chronic pain. ???Occupational therapy teaches you how to do routine tasks of daily living in ways that lessen yourdiscomfort. ???Counseling can help you??cope better with stress and pain. ???Other therapies such as meditation, yoga, biofeedback, massage, and acupuncture can also help manage chronic pain. ???Changing certain habits can help reduce chronic pain: oEat healthy oDevelop an exercise routine oGet enough sleep?? oStop smoking and limiting alcohol use oLose excess weight Follow-up care Follow up with your??healthcare provider, or as advised. Let your??healthcare provider??know if yourcurrent treatment plan is working or if changes are needed. To learn more For more information, contact: ???[place] [employer], americanheadachesociety.org/ 010-548-8616 ???[place] [employer], theacpa.org 840-038-0458 ?? [phone] [employer]. All rights reserved. This information is not intended as a substitute for professional medical care. Always follow your healthcare professional's instructions. 07/15/2021 17:14:19Muscle Strain, ExtremityMuscle Strain in the Extremities A muscle strain is a stretching and tearing of muscle fibers. This causes pain, especially when you move that muscle. There may also be some swelling and bruising. Home care ???Keep the hurt area raised above heart level to reduce pain and swelling. This is especially important during the first 48 hours. ???Apply an ice pack over the injured area for 15 to 20 minutes every??3 to 6??hours. You should do this for??the first??24 to 48 hours.??You can make an ice pack by filling a plastic bag that seals atthe top with ice cubes and then wrapping it with a thin towel. Be careful not to injure your skin with the ice treatments. Ice should never be applied directly to skin. Continue the use of ice packs for relief of pain and swelling as needed. After 48 hours, apply heat??(warm shower or??warm bath)??for15 to 20 minutes several times a day, or alternate ice and heat. ???You may use??[id number]-[id number] pain medicine to control pain, unless another medicine was prescribed. If you have chronic liver or kidney disease or ever had a stomach ulcer or gastrointestinal bleeding, talk with your healthcare provider??before??using these medicines. ???For leg strains: If crutches have been recommended, don???t put full weight on the hurt leg untilyou can do so without pain. You can return to sports when you are able to hop and run on the injuredleg without pain. Follow-up care Follow up with your??healthcare provider, or as advised. When to seek medical advice Call your healthcare provider right away if any of these occur: ???The toes of the injured leg become??swollen, cold, blue, numb, or tingly ???Pain or swelling increases ?? [id number] [employer]. All rights reserved. This information is not intended as a substitute for professional medical care. Always follow your healthcare professional's instructions. 07/15/2021 17:14:19Fall with Uncertain CauseFall with Uncertain Cause You had a fall today. But the cause of your fall is not certain. Falls can happen due to slipping, tripping, or losing your balance. A fall can also happen from a fainting spell or seizure. A fall can happen for a simple reason (such as tripping over something). But falls in older adults are often caused by a combination of things: ???Age-related decline in function with worsening balance, stability, vision, and muscle strength ???Chronic illness, such as heart arrhythmias, heart valve disease, vascular disease, COPD, diabetes, strokes, or arthritis ???Shoes that don't give much support and make you likely to slip or slide ???Anemia or low blood pressure?Effects or side effects of medicines ???Fluid loss (dehydration) or recent alcohol use ???Hazards in your home or around you, such as??uneven or slippery ground, an unfamiliar place, obstacles, uneven surfaces, or slippery ground ???Something linked to an activity you were doing, such as rushing to the bathroom The cause of your fall today is not certain. So it's possible that a fainting spell or seizure was the cause. This means that it could happen again, without warning. If you fall again without a cause, come back to this facility right away for more tests. Or follow up with your healthcare provider as explained below. It's normal to feel sore and tight in your muscles and back the next day, and not just the muscles you first injured. All the parts of your body are connected. So while at first one area hurts, the next day another may hurt. Also when you injure yourself, it causes inflammation. This makes your muscles tighten up and hurt more. After that, it should slowly improve over the next few days. Tell your provider if you have any more severe pain. Even without a definite head injury, you can still get a concussion. Concussions and even bleeding can still happen, especially if you had a recent injury. Or if you take blood-thinner medicine. You may also have a mild headache. And you may feel tired and even nauseous or dizzy. Home care ???Rest today and resume your normal activities as soon as you feel normal again. It's best to stay with someone. They can check on you for the next 24 hours to see if you fall again. ???If you were hurt during the fall, follow your healthcare provider's advice on caring for your injury. ???If you get lightheaded or dizzy, lie down right away. Or sit and lean forward with your head down. ???For your safety, until you see your healthcare provider: oDon't drive a car or operate dangerous equipment oDon't take a bath or shower alone oDon't swim alone A condition causing fainting or seizures must be ruled out before doing these activities. ???You may use acetaminophen or ibuprofen to control pain, unless another pain medicine was prescribed. Talk with your provider before using these medicines if you: oHave chronic liver or kidney disease oEver had a stomach ulcer or??gastrointestinal bleeding ???Keep your appointments for any further testing that may have been scheduled for you. Follow-up care Follow up with your healthcare provider, or as advised. If X-rays or a CT scan were done, you will be told if there is a change in the reading, especially if it affects treatment. Call 911 Call 911 if any of these happen: ???Trouble breathing ???Confusion ???Trouble waking up ???Fainting or loss of consciousness ???Fast or very slow heart rate ???Seizure ???Speech or vision problems ???Arm or leg weakness ???Trouble walking or talking, loss of balance, numbness or weakness in one side of your body, facial droop When to get medical advice Call your healthcare provider right away if any of these happen: ???Another unexplained fall ???Dizziness ???Severe headache ???Nausea and vomiting ???Blood in vomit, stools (black or red color) ?? 3070-1086 [employer]. All rights reserved. This information is not intended as a substitute for professional medical care. Always follow your healthcare professional's instructions. 07/15/2021 17:14:19Fall PreventionFall??Prevention Falls often occur due to slipping, tripping or losing your balance. Millions of people fall every year and injure themselves.??Here are ways to reduce your risk of falling again. ???Think about your fall, was there anything that caused your fall that can be fixed, removed, or replaced?Make your home safe by keeping walkways clear of objects you may trip over, such as electric cords. ???Use non-slip pads under rugs. Don't use area rugs or small throw rugs. ???Use non-slip mats in bathtubs and showers. ???Install handrails and lights on staircases. The handrails should be on both sides of the stairs. ???Don't walk in poorly lit areas. ???Don't stand on chairs or wobbly ladders. ???Use caution when reaching overhead or looking upward.??This position can cause a loss of balance. ???Be sure your shoes fit properly, have non-slip bottoms and are in good condition.?Wear shoes both inside and out. Don't go barefoot or wear slippers. ???Be cautious when going up and down stairs, curbs, and when walking on uneven sidewalks. ???If your balance is poor, consider using a cane or walker. ???If your fall was related to alcohol use, stop or limit alcohol intake.?If your fall was related to use of sleeping medicines, talk to your healthcare provider about this.??You may need to reduce your dosage at bedtime if you awaken during the night to go to the bathroom.?To reduce the need for nighttime bathroom trips: oDon't drink fluids for several hours before going to bed oEmpty your bladder before going to bed oMen can keep a urinal at the bedside ???Stay as active as you can. Balance, flexibility, strength, and endurance all come from exercise. They all play a role in preventing falls. Ask your healthcare provider which types of activity are right for you. ???Get your vision checked on a regular basis. ???If you have pets, know where they are before you stand up or walk so you don't trip over them. ???Use night lights. ???Go over all your medicines with a pharmacist or other healthcare provider to see if any of them could make you more likely to fall. ?? 3467-1089 [employer]. All rights reserved. This information is not intended as a substitute for professional medical care. Always follow your healthcare professional's instructions. 07/15/2021 17:14:19Cervical Disk ProblemsCervical Disk Problems The spine has 3 natural curves. The cervical curve is located in the neck. It forms the top part of the spine. For this reason, it' s also called the cervical spine. This sheet tells you more about theparts of the cervical spine and damaged disks. This is a common problem that can affect the cervicalspine, but most people don't need surgery for this.?? A healthy cervical spine The spine is made up of the following: ???Vertebrae. These are bones stacked like building blocks that make up the spine. The neck containsthe first 7 vertebrae of the spine. ???Disks. These are small pads of tissue that lie between the vertebrae. They help cushion and protect the vertebrae and allow your spine to move. ???The spinal cord. This is nervous tissue that runs through a large central opening (spinal canal) formed by the vertebrae. ???Nerves. These branch out from the spinal cord and carry messages to the body. ???Foramina. These are smaller openings on each side of in the vertebrae. Nerves travel to your armsand other parts of your body from the spinal cord??through these openings. Damaged disks in the cervical spine One of the most common cervical spine problems is a damaged disk. A disk may be injured by a sudden movement, causing a disk to bulge or break open (herniate).??Or a disk may wear out slowly over time (degenerate). A worn-out disk may become so flat that the vertebrae above and below it touch or slip back and forth. As disks wear out, abnormal bone growths (bone spurs) can form on the vertebrae. Bonespurs can also form in the foramina, causing them to narrow (stenosis) and press on the nerve root. If your healthcare provider thinks that you have a damaged disk, tests may be done to confirm the problem. These may include a magnetic resonance imaging (MRI), computed tomography (CT), flexion-extension X-ray films, or electromyography (EMG). Your healthcare provider will then work with you to plan treatment as needed.? 1475-2005 [employer]. All rights reserved. This information is not intended as a substitute for professional medical care. Always follow your healthcare professional's instructions. 07/15/2021 17:14:19Cervical CollarWearing a Cervical Collar A cervical collar is used to give support and limit movement of the neck. It is usually used after amoderate to severe neck sprain. It may also be used after spine surgery to reduce movement. Different types of collars have different purposes. Home care There are 2 types of cervical collars: ???Soft collar. A soft collar is often used for neck pain. You may to wear it all the time or only during certain activities. ???Rigid collar. This type of collar is used to make sure that the spine doesn???t move. Rigid collars are used after a trauma to prevent spinal cord injury from spine movement. A rigid collar may alsobe used before or after spine surgery. It helps to prevent movement and to promote healing. Your healthcare team will tell you if and when you can take the collar off, such as during some activities. General instructions for wearing your collar: ???Unless told otherwise, wear the collar whenever you are out of bed. You may take it off for sleepand for bathing. ???When lying down, support your neck with a small pillow or rolled-up towel under the neck. When adjusting your pillows, try to keep your neck in line with your upper back (neutral position). Pillows shouldn't be so thick that they bend your head forward. ???Don't wear the collar longer than advised by your healthcare provider. This may lead to further stiffness from lack of neck movement. When to get medical advice Call your healthcare provider right away if any of these occur: ???Pain in your neck gets worse ???Pain spreads from your neck into your shoulder or arms Call 911 or get medical care right away if you get new weakness or numbness in your arms or hands. ?? 6515-8543 [employer]. All rights reserved. This information is not intended as a substitute for professional medical care. Always follow your healthcare professional's instructions. 07/15/2021 17:14:19AnemiaAnemia Anemia is a condition that occurs when your body does not have enough healthy red blood cells (RBCs). RBCs are the parts of your blood that carry oxygen all over your body. A protein called hemoglobin allows your RBCs to absorb and release oxygen. Without enough RBCs or hemoglobin, your body doesn't get enough oxygen. Symptoms of anemia may then occur. What are the symptoms of anemia? Some people with anemia have no symptoms. But most people have symptoms that range from mild to severe. These can include: ???Tiredness (fatigue) ???Weakness ???Pale skin ???Shortness of breath ???Dizziness or fainting ???Rapid heartbeat ???Trouble doing normal amounts of activity ???Yellowing of your eyes, skin, or mouth and dark urine (jaundice) What causes anemia? Anemia can occur when your body: ???Loses too much blood ???Does not make enough RBCs ???Destroys your RBCs at a faster rate than it can replace them ???Does not make a normal amount of hemoglobin in your RBCs These problems can occur for many reasons, including: ???A condition that you are born with (congenital or inherited), such as sickle cell disease or thalassemia ???Heavy bleeding for any reason, including injury, surgery, childbirth, or even heavy menstrual periods ???Being low in certain nutrients, such as iron, folate, or vitamin B-12 ???Certain long-term (chronic) conditions such as diabetes, arthritis, or kidney disease ???Certain chronic infections such as tuberculosis or HIV ???Exposure to certain medicines, such as those used for chemotherapy There are different types of anemia. Your healthcare provider can tell you more about the type of anemia you have and what may have caused it. How is anemia diagnosed? To diagnose anemia, your healthcare provider orders blood tests. These can include: ???Complete blood cell count (CBC). This test measures the amounts of the different types of blood cells. ???Blood smear. This test checks the size and shape of your blood cells. To do the test, a drop of your blood is looked at under a microscope. A stain is used to make the blood cells easier to see. ???Iron studies. These tests measure the amount of iron in your blood. Your body needs iron to make hemoglobin in your RBCs. ???Vitamin B-12 and folate studies. These tests check for some of the components that help give RBCsa normal size and shape. ???Reticulocyte count. This test measures the amount of new RBCs that your bone marrow makes. ???Hemoglobin electrophoresis. This test checks for problems with your hemoglobin in RBCs. ???Bone marrow biopsy. This test evaluates the bone marrow where RBCs are made. How is anemia treated? Treatment for anemia is based on the type of anemia, its cause, and the severity of your symptoms. Treatments may include: ???Diet changes. This includes increasing the amount of certain nutrients in your diet, such as iron, vitamin B-12, or folate. Your healthcare provider may also prescribe nutrient supplements. ???Medicines. Certain medicines treat the cause of your anemia. Others help build new RBCs or ease symptoms. If a medicine is the cause of your anemia, you may need to stop or change it. ???Blood transfusions. Replacing some of your blood can increase the number of healthy RBCs in your body. ???Surgery. In some cases, your healthcare provider may do surgery to treat the underlying cause of anemia. If you need surgery, your healthcare provider will explain the procedure and outline the risks and benefits for you. What are the long-term concerns? If you have a certain type of anemia, you can expect a full recovery after treatment. If you have other types of anemia (especially a type you're born with), you will need to manage it for life. Your healthcare provider can tell you more. ?? [id number] [employer]. All rights reserved. This information is not intended as a substitute for professional medical care. Always follow your healthcare professional's instructions. Care Team PersonnelName: Laurita Kothari MD Address: [address] [place] [address] [facility]
--- OUTSIDE RECORDS SUMMARY | 2022-02-22 00:04 | XMS_ITS | Referral Summary ---
:04/03/1966 Author Organization [facility] Address [address] [place] [address]- Care Team Providers Name Role Phone WERNER CAUSEY MD Primary Care Physician Encounter Date(s): 03/12/21 - 03/11/21 [facility] [address] [place] [address]- [facility] [phone] Discharge Disposition: 01-Discharged to Home Self Care Attending Physician: WERNER CAUSEY MD Admitting Physician: WERNER CAUSEY MD Referring Physician: WERNER CAUSEY MD
--- OUTSIDE RECORDS SUMMARY | 2022-02-22 00:04 | XMS_ITS | Referral Summary ---
:04/03/1966 Author Organization [facility] Address [address] [address] [place] [id number] Care Team Providers Name Role Phone WERNER CAUSEY MD Primary Care Physician Encounter Date(s): 03/04/21 - 06/11/21 [facility] [address] [place] [address] [employer] [address] [place] [address]- Encounter Diagnosis Fecal occult blood test positive (Discharge Diagnosis) - 06/11/21 Family history of colon cancer in mother (Discharge Diagnosis) - 06/11/21 Encounter for diagnostic endoscopy (Discharge Diagnosis) - 06/11/21 Loss of weight (Discharge Diagnosis) - 06/11/21 Discharge Disposition: 01-Discharged to Home Self Care Attending Physician: Gely GIPSON MD Admitting Physician: Gely GIPSON MD Referring Physician: WERNER CAUSEY MD Problem List Condition Effective Dates Status Health Status Informant Arthritis(Confirmed) Active Diabetes(Confirmed) Active Hearing difficulty(Confirmed) Active Hypercholesterolemia(Confirmed) Active HTN (hypertension)(Confirmed) Active Hypothyroid(Confirmed) Active Allergies, Adverse Reactions, Alerts No Known Allergies Medications acetaminophen-codeine 300 mg-60 mg oral tablet = 1 tab, Oral, q4hR, PRN for pain, 0 Refill(s), Maintenance Start Date: 06/11/21 Status: Orderedatorvastatin 40 mg oral tablet 0 Refill(s), Maintenance Start Date: 06/11/21 Status: Orderedergocalciferol 1.25 mg (50,000 intl units) oral capsule 0 Refill(s), Maintenance Start Date: 06/11/21 Status: OrderedFarxiga 10 mg oral tablet 0 Refill(s), Maintenance Start Date: 06/11/21 Status: OrderedGlucovance 5 mg-500 mg oral tablet 1 tab, Oral, BID, 0 Refill(s), Maintenance Start Date: 06/11/21 Status: Orderedlisinopril 10 mg oral tablet 0 Refill(s), Maintenance Start Date: 06/11/21 Status: OrderedSynthroid 200 mcg (0.2 mg) oral tablet 0 Refill(s), Maintenance Start Date: 06/11/21 Status: OrderedSynthroid 200 mcg (0.2 mg) oral tablet 0 Refill(s), Maintenance Start Date: 06/11/21 Status: OrderedtiZANidine 4 mg oral tablet 0 Refill(s), Maintenance Start Date: 06/11/21 Status: Ordered
--- OUTSIDE RECORDS SUMMARY | 2022-02-22 00:04 | XMS_ITS | Referral Summary ---
:04/03/1966 Author Organization [facility] Address [address] [place] [address]- Care Team Providers Name Role Phone WERNER CAUSEY MD Primary Care Physician Encounter Date(s): 06/16/21 - 06/17/21 [facility] [address] [place] [address]- Encounter Diagnosis Chest pain (Discharge Diagnosis) - 06/17/21 Discharge Disposition: 01-Discharged to Home Self Care Attending Physician: DAVID JAMA MD Admitting Physician: DAVID JAMA MD Referring Physician: DAVID JAMA MD Problem List Condition Effective Dates Status [...] 0 Refill(s), Maintenance Start Date: 06/11/21 Status: Orderedfamotidine 20 mg oral tablet = 1 tab, Oral, BID, # 30 tab, 0 Refill(s), Maintenance, Pharmacy: [facility], 160, 06/16/21 19:12:00 CDT, Height/Length Dosing, cm, 56, 06/16/21 19:12:00 CDT, Weight Dosing, kg Start Date: 06/17/21 Status: OrderedFarxiga 10 mg oral tablet 0 [...]
[2022-02-22] MEDS: OSELTAMIVIR PHOSPHATE 75 MG CAPSULE PO (00:54)
[2022-02-22] MEDS: ONDANSETRON ODT 4 MG TAB PO (00:54)
[2022-02-22 01:16] VITALS: PULSE 110; RESP 18; O2SAT 91
== END 2022-02-22 01:27 | disposition home or self-care (01) ==
PROVIDERS: Emergency Provider Family Medicine
DX: J09.X2 Influenza due to identified novel influenza A virus with other respiratory manifestations (principal)
CPT/HCPCS: 87502; 87634; 87635; 99283; 99284; A9270